=== PATIENT | male | born 1930 | race Caucasian/White ===

== ENCOUNTER 2016-04-20 08:56 | Inpatient (IN) | payer MEDICARE, OTHER ==
[~2016-04-20] VITALS: Ht 185.4 cm; Wt 118.2 kg
[~2016-04-20 08:56] MED LIST: BETAPACE 80 MG80 MG PO; CORDARONE200 MG PO; COUMADIN5 MG PO; FLOMAX0.4 MG PO; FLORINEF 0.1 M0.1 MG PO; K-DUR20 MEQ PO; LASIX40 MG PO; PACERONE200 MG PO; SYNTHROID100 MCG PO; SYNTHROID200 MC1 PO
[2016-04-20 09:23] LABS: BASOPHILS 0.3 % (0.0-2.0); EOSINOPHILS 0.2 % (0-7); HEMATOCRIT 38.8 % (42.0-54.0); HEMOGLOBIN 12.2 g/dL (13.5-17.5); IMMATURE GRANULOCYTES 0.3 % (0-5); LYMPHOCYTES 14.1 % (15-50); MCH 29.5 pg (26.0-34.0); MCHC 31.4 g/dL (31.0-37.0); MCV 93.9 fL (80.0-100.0); MONOCYTES 9.9 % (2-11); NEUTROPHILS 75.2 % (40-80); PLATELET COUNT 150 10x3/uL (130-400); RBC 4.13 10x6/uL (4.20-6.10); WBC 5.8 10x3/uL (4.8-10.8)
[2016-04-20 09:36] LABS: ALBUMIN 3.5 g/dL (3.4-5.0); ALKALINE PHOSPHATASE 103 U/L (46-116); ALT (SGPT) 30 U/L (10-68); BILIRUBIN - TOTAL 0.92 mg/dL (0.2-1.3); CALC OSMOLALITY 286 mosm/kg (275-300); CALCIUM 9.4 mg/dL (8.5-10.1); CARBON DIOXIDE 31.3 mmol/L (21.0-32.0); CHLORIDE - SERUM 103 mmol/L (98-107); CREATININE - SERUM 1.4 mg/dL (0.6-1.3); GLUCOSE 116 mg/dL (74-106); PROTEIN - SERUM 7.3 g/dL (6.4-8.2); SODIUM 141 mmol/L (136-145); UREA NITROGEN 27 mg/dL (7-18); eGFR NON AFRICAN AMERICAN 51 mL/min (90-120)
[2016-04-20 09:44] LABS: AMYLASE - SERUM 54 U/L (25-115); CREATINE KINASE 40 UL (21-232); LIPASE 136 U/L (73-393); PRO BNP 6445 pg/mL (0-450)
[2016-04-20 09:46] LABS: TROPONIN-I < 0.017 ng/mL (0.000-0.060)
[2016-04-20 10:25] LABS: INR 2.23 (0.85-1.17); PROTIME 24.7 SECONDS (11.6-15.0)
--- NOTE | 2016-04-20 11:03 | NUR ---
RECEIVED PT FROM ER VIA WHEELCHAIR. ON 02 AT 2L VIA NC. IV SEEN TO RIGHT AC THAT IS CURRENTLY SALINE LOCKED AND PATENT. PT DENIES ANY PAIN AT CURRENT TIME. DAUGHTERS ARE AT BEDSIDE. WILL CONTINUE TO ADMIT PT AND CONTINUE TO MONITOR.
[2016-04-20] MEDS ORDERED: ZYLOPRIM300 MG PO (11:10)
[2016-04-20 11:11] VITALS: BP 109/79; BMI 35.9
[2016-04-20] MEDS ORDERED: VITAMIN D10000 UNI1 PO (11:11)
[2016-04-20 11:30] VITALS: BP 109/79
--- NOTE | 2016-04-20 12:14 | NUR ---
PT DOES HAVE LEONIDES HOSE ON. PER REPORT FROM PTS DAUGHTERS, PT WEARS THESE TO PREVENT BLOOD CLOTS. PT IS ALSO ON COUMADIN TO PREVENT BLOOD CLOTS.
--- NOTE | 2016-04-20 13:06 | NUR ---
Patient Name: LILIYA TREJO Admission Status: ER Accout number: [id number] Admission Date: 04-20-2016 : 1930 Admission Diagnosis: CHF Attending: JOHN Current LOS: 1 Anticipated DC Date: 04/22/16 Planned Disposition: Return home with . Primary Insurance: MEDICARE A & B Discharge Planning Comments: CM met with patient and daughters to complete initial discharge planning assessment. Consent given to complete assessment. Patient lives in a one story home with his . There are stairs and a ramp to enter into the home. Patient is independent in his care at home. DME at home is walker, scooter, and a cane. He also has a cpap and lifeline. Patient plans to return home at discharge and is unsure of needs at this time. Cm will continue to follow and assist with dc plans/needs. Fleet Manager/Dispatch: Christal Goff RN, [facility] [phone] Is the patient Alert and Oriented? Yes * How many steps to enter\exit or inside your home? 2 * PCP Dr. [place] * Pharmacy [facility] * Preadmission Environment Home with Family * ADLs Independent * Equipment Cane CPAP * Other Equipment Scooter - just got this * List name and contact numbers for known caregivers / representatives who currently or will assist patient after discharge: Karen Hoffmann - daughter - [phone] * Please name any agencies selected above. [facility] * Additional services required to return to the preadmission environment? No * Can the patient safely return to the preadmission environment? Yes * Has this patient been hospitalized within the prior 30 days at any hospital? No
[2016-04-20 13:26] LABS: % SATURATION 16 % (15-55); IRON 69 ug/dl (35-150); TOTAL IRON BIND CAPACITY 412 ug/dl (260-445); UNSAT IRON BIND CAPACITY 343 ug/dl (150-375)
[2016-04-20 14:25] LABS: HEMOGLOBIN A1C 5.8 % (4.8-6.0)
[2016-04-20 14:55] VITALS: BP 109/79
[2016-04-20 16:00] VITALS: BP 96/62
--- NOTE | 2016-04-20 17:18 | NUR ---
1115- ADMITTED PT. QUICKSTART DONE, ADMISSION ASSESSMENT DONE, AND ADMISSION HISTORY DONE. WENT OVER PTS HOME MEDICATION WITH PT AND DAUGHTERS. PT AND DAUGHTERS STATED THE ONES WE WENT OVER WERE THE MAIN ONES. INFORMED THEM TO LET ME KNOW IF THEY CAN THINK OF ANY OTHER MEDICATION THE PT TAKES AT HOME IF NOT STATED WHILE I WAS PUTTING THEM IN. THEY STATED THEY WOULD DO SO. WILL CONTINUE TO MONITOR.
--- NOTE | 2016-04-20 17:23 | NUR ---
PT SITTING UP IN BED WITH EYES OPEN RESTING. IS AT BEDSIDE. DENIES ANY NEED AT CURRENT TIME. WILL CONTINUE TO MONITOR.
[2016-04-20 20:15] VITALS: BP 97/59
--- NOTE | 2016-04-20 22:06 | NUR ---
PT RESTING IN BED. ALERT ORIENTED CONVERSANT. PT STATING THAT HE NEEDS HIS RESTLESS LEG MEDICATION. PT MED REC REVIEWED. DOES NOT CONTAIN TYPICAL RLS MEDICATIONS. MED REC PREVIOUSLY REVIEWED BY DESHAUN ODOM, [facility].
[2016-04-21 04:12] VITALS: BP 122/84
--- NOTE | 2016-04-21 05:00 | NUR ---
PT RESTING WITH EYES CLOSED. NO DISTRESS. CPOC.
[2016-04-21 05:01] LABS: BASOPHILS 0.4 % (0.0-2.0); EOSINOPHILS 2.3 % (0-7); HEMATOCRIT 36.2 % (42.0-54.0); HEMOGLOBIN 11.4 g/dL (13.5-17.5); IMMATURE GRANULOCYTES 0.2 % (0-5); LYMPHOCYTES 25.5 % (15-50); MCH 29.5 pg (26.0-34.0); MCHC 31.5 g/dL (31.0-37.0); MCV 93.8 fL (80.0-100.0); MEAN PLATELET VOLUME 9.8 fL (7.4-10.4); MONOCYTES 12.2 % (2-11); NEUTROPHILS 59.4 % (40-80); PLATELET COUNT 144 10x3/uL (130-400); RBC 3.86 10x6/uL (4.20-6.10); RDW 16.1 % (11.5-14.5); WBC 5.3 10x3/uL (4.8-10.8)
[2016-04-21 05:20] LABS: INR 1.99 (0.85-1.17); PROTIME 22.6 SECONDS (11.6-15.0)
[2016-04-21 05:24] LABS: ANION GAP 13.4 mmol/L (8-16); CALCIUM 8.9 mg/dL (8.5-10.1); CARBON DIOXIDE 29.9 mmol/L (21.0-32.0); CREATININE - SERUM 1.5 mg/dL (0.6-1.3)
[2016-04-21 05:25] LABS: POTASSIUM - SERUM 3.3 mmol/L (3.5-5.1)
--- NOTE | 2016-04-21 07:06 | NUR ---
AM ROUNDING- PT LAYING IN BED ON RIGHT SIDE WITH EYES OPEN RESTING. IS AT BEDSIDE. ON MONITOR SHOWING SR, HR 95. PER REPORT PT HAS PACEMAKER TO LEFT SIDE OF RIGHT SIDE OF CHEST. ON 02 AT 2L VIA NC. IV SEEN TO RIGHT AC THAT IS CURRENTLY SALINE LOCKED AND PATENT. URINAL IS AT BEDSIDE. PT IS ON EP. POTASSIUM WAS 3.3 THIS AM THAT PER REPORT WAS COVERED BY WAREHOUSE DISTRIBUTION MANAGER NURSE DIANA GREY. NO NEED AT CURRENT TIME. WILL CONTINUE TO MONITOR.
[2016-04-21 09:00] VITALS: BP 100/69
[2016-04-21 12:00] VITALS: BP 85/50
--- NOTE | 2016-04-21 12:35 | NUR ---
ILENE BHATTI NP ON UNIT. CAME TO ME AND ASKED WHY PT DIDN'T GET LAXIS THIS AM. I STATED THE ONLY TIME IT WAS SHOWN TO BE GIVEN ON THE MAY WAS 1800. ILENE BHATTI NP STATED TO ME TO GO AHEAD AND HAVE IT RETIMED FOR 0900 AND 2100 AND TO GIVE PT ONE TIME DOSE NOW OF LAXIS 40MG IV. CALLED PHARMACY TO ASK THEM TO RETIME PTS BID LAXIS, THEY AGREED. WILL GIVE ONE TIME DOSE OF LAXIS NOW AND CONTINUE TO MONITOR.
--- NOTE | 2016-04-21 12:56 | NUR ---
INFORMED ILENE BHATTI NP THAT PTS B/P WAS 85/50. ILENE BHATTI NP STATED SHE WAS AWARE AND THAT PT HAD CHRONIC HYPOTENSION.
--- NOTE | 2016-04-21 15:35 | NUR ---
ON MONITOR SHOWING CONTROLLED A-FIB, HR 80. DR. POTTER MADE ROUNDS THIS AM AND IS AWARE OF THIS. WILL CONTINUE TO MONITOR.
[2016-04-21 16:00] VITALS: BP 113/77
--- NOTE | 2016-04-21 18:13 | NUR ---
PT SITTING UP IN BED, IS CURRENTLY GIVING PT A BED BATH. NO NEED AT CURRENT TIME. WILL CONTINUE TO MONITOR.
--- NOTE | 2016-04-21 19:56 | NUR ---
RESUMED CARE OF PT, VISITING WITH FAMILY, SCD ARE ON, 022L, [id number], USES C-PAP AT NIGHT,HAS PACEMAKER TO R. SIDE, DENIES ANY NEEDS, CALL LIGHT IN REACH, BED IS LOW, SRX2, WILL CONTINUE TO MONITOR
[2016-04-21 20:00] VITALS: BP 81/47
[2016-04-22] VITALS: BP 109/76
--- NOTE | 2016-04-22 01:35 | NUR ---
PT RESTING WITH EYES CLOSED ON L SIDE. RESP EVEN AND REGULAR. HOME CPAP MACHINE IN USE. SR UP X2, CALL LIGHT WITHIN REACH.
[2016-04-22 04:00] VITALS: BP 98/57
[2016-04-22 05:31] LABS: BASOPHILS 0.7 % (0.0-2.0); EOSINOPHILS 6.6 % (0-7); HEMATOCRIT 34.9 % (42.0-54.0); HEMOGLOBIN 10.7 g/dL (13.5-17.5); IMMATURE GRANULOCYTES 0.2 % (0-5); LYMPHOCYTES 30.8 % (15-50); MCH 29.1 pg (26.0-34.0); MCHC 30.7 g/dL (31.0-37.0); MCV 94.8 fL (80.0-100.0); MEAN PLATELET VOLUME 10.1 fL (7.4-10.4); MONOCYTES 15.2 % (2-11); NEUTROPHILS 46.5 % (40-80); PLATELET COUNT 135 10x3/uL (130-400); RBC 3.68 10x6/uL (4.20-6.10); RDW 15.8 % (11.5-14.5); WBC 4.4 10x3/uL (4.8-10.8)
[2016-04-22 05:39] LABS: ANION GAP 9.6 mmol/L (8-16); CARBON DIOXIDE 33.2 mmol/L (21.0-32.0); CREATININE - SERUM 1.4 mg/dL (0.6-1.3)
[2016-04-22 05:41] LABS: POTASSIUM - SERUM 3.8 mmol/L (3.5-5.1)
[2016-04-22 05:51] LABS: INR 2.28 (0.85-1.17); PROTIME 25.2 SECONDS (11.6-15.0)
--- NOTE | 2016-04-22 07:39 | NUR ---
RECEIVED PT REPORT. WILL CONTINUE PLAN OF CARE. NO OTHER NEEDS AT THIS TIME. WILL CONTINUE TO [facility].
[2016-04-22 08:16] VITALS: BP 127/85
--- NOTE | 2016-04-22 09:54 | NUR ---
PT IS ALERT. NO CO PAIN AT THIS TIME. ASSESSMENT DONE PER FLOWSHEET. NO OTHER NEEDS.
[2016-04-22 10:37] VITALS: Ht 185.4 cm; Wt 118.2 kg
[2016-04-22 11:37] VITALS: BP 92/57
--- NOTE | 2016-04-22 13:57 | NUR ---
NO SS OF DISTRESS AT THIS TIME. WILL CONTINUE TO MONITOR.
[2016-04-22 15:53] VITALS: BP 109/75
--- NOTE | 2016-04-22 19:30 | NUR ---
PT IS RESTING IN BED VISITING WITH HIS . ALERT AND ORIENTED X 3. DENIES ACUTE DISCOMFORT AT THIS TIME. IV INFUSING TO RIGHT AC WITHOUT DIFFICULTY. NO REDNESS OR EDEMA NOTED AT THE INSERTION SITE. O2 IS ON @ 2LPM PER NC. TELEMETRY UNIT IS INTACT. SCD'S ARE ON. SR'S ARE UP X 2 IN BED. CALL LIGHT AND BEDSIDE TABLE ARE WITHIN EASY REACH.
[2016-04-22 20:00] VITALS: BP 142/79
--- NOTE | 2016-04-22 22:33 | NUR ---
PT IS RESTING IN BED WITH EYES OPEN. VISITING WITH HIS . NO NEEDS VOICED.
--- NOTE | 2016-04-22 23:30 | NUR ---
LYING ON RT SIDE WITH EYES CLOSED, RESP EVEN AND UNLAB. NO S/S OF ACUTE DISTRESS NOTED. FAMILY MEMBER AT BEDSIDE FOR NIGHT. C/L IN REACH.
[2016-04-23] VITALS: BP 108/89
--- NOTE | 2016-04-23 01:48 | NUR ---
RESTING IN BED WITH EYES CLOSED. NO DISTRESS NOTED.
--- NOTE | 2016-04-23 03:36 | NUR ---
PT RESTING IN BED WITH EYES CLOSED.
--- NOTE | 2016-04-23 04:39 | NUR ---
IV NOTED TO BE INFILTRATED TO RIGHT AC, AND LEAKING FLUIDS. IV DC'D WITH CATHETER INTACT. BANDAID APPLIED TO SITE. IV RESITED TO LEFT WRIST WITH 22G CATH USING STERILE TECHNIQUE. SITE SECURED WITH CLEAR TAPE AND OPSITE. IV RESTARTED.
[2016-04-23 06:14] LABS: BASOPHILS 0.6 % (0.0-2.0); HEMATOCRIT 37.1 % (42.0-54.0); HEMOGLOBIN 11.4 g/dL (13.5-17.5); IMMATURE GRANULOCYTES 0.2 % (0-5); LYMPHOCYTES 32.2 % (15-50); MCH 29.2 pg (26.0-34.0); MCHC 30.7 g/dL (31.0-37.0); MCV 94.9 fL (80.0-100.0); PLATELET COUNT 158 10x3/uL (130-400); RBC 3.91 10x6/uL (4.20-6.10); RDW 15.9 % (11.5-14.5); WBC 4.8 10x3/uL (4.8-10.8)
[2016-04-23 06:18] LABS: CARBON DIOXIDE 32.4 mmol/L (21.0-32.0); CREATININE - SERUM 1.5 mg/dL (0.6-1.3); INR 2.08 (0.85-1.17); POTASSIUM - SERUM 3.4 mmol/L (3.5-5.1); PROTIME 23.4 SECONDS (11.6-15.0)
--- NOTE | 2016-04-23 06:40 | NUR ---
PT IS RESTING IN BED WITH EYES OPEN. NO NEEDS VOICED AT THIS TIME.
--- NOTE | 2016-04-23 07:09 | NUR ---
RECEIVED PT REPORT. NO OTHER NEEDS AT THIS TIME. WILL CONTINUE PLAN OF CARE.
[2016-04-23 07:46] VITALS: BP 117/86
[2016-04-23 11:36] VITALS: BP 147/87
[2016-04-23 13:16] LABS: FOLATE (FOLIC ACID) - SERUM 17.2 ng/mL (>3.0)
--- NOTE | 2016-04-23 13:49 | NUR ---
PT IS ALERT. ASSEESSMENT DONE PER FLOWSHEET. NO OTHER NEEDS AT THIS TIME. WILL CONTINUE TO MONTIOR.
[2016-04-23 15:18] VITALS: BP 130/85
--- NOTE | 2016-04-23 15:27 | EC ---
PATIENT:LILIYA TREJO DATE OF SERVICE: 04/20/16 SEX: M MEDICAL RECORD: [id number] DATE OF : 30 LOCATION:D.M2 D.210 AGE OF PATIENT: 85 ADMISSION DATE: 04/20/16 REFERRING PHYSICIAN: INTERPRETING PHYSICIAN: ROXANE MANRIQUEZ M.D. ECHOCARDIOGRAM REPORT ECHO CHARGES 4 ECHO COMPLETE CLINICAL DIAGNOSIS: CHF ECHOCARDIOGRAPHIC MEASUREMENTS (adult normal given) AC root (d.<3.7cm) 4.1 LV Septum d (<1.2 cm> 1.6 Valve Excursion 0.9 LV Septum (systole) 2.3 Left Atria (s.<4.0cm> 5.0 LVPW d(<1.2cm) 1.5 RV (d.<2.3cm) 3.1 LVPW (sytole) 2.1 LV diastole(<5.6CM) 6.2 MV E-F(>70mm/sec) LV systole 3.8 LVOT Diameter 1.8 MV exc.(>10mm) Est.ejection fraction (50-75%) Pericardial Effusion N DOPPLER: LVIT A E 187 LA RVSP 49.1 LVOT 108 AOP1/2T Asc. Ao 515 RVOT 67.0 RA PA 103 AV Gradient Peak 106.1 AV Mean 67.0 AV Area 0.4 MV Gradient Peak 14.2 MV Mean 5.0 MV Area COMMENTS: Zipper Setter Chainstitch: Aminata GILMOREOE Silk Winding Machine Operator:Sarah Manriquez TAPE# PACS DATE OF SERVICE: 04/21/2016 REFERRING PHYSICIAN: Tayla Dorantes MD. INDICATION: Congestive heart failure. DESCRIPTION: Left ventricle is mildly dilated. There is mild LV dysfunction noted. Estimated ejection is in the order of 40%. Mitral valve is structurally normal. There is moderate regurgitation seen. Left atrium is moderately dilated. The aortic valve leaflets are heavily calcified. There is decreased ECHOCARDIOGRAM REPORT [id number] LILIYA TREJO leaflet excursion noted. Peak gradient across the valve is 106 mmHg with a mean of 67 mmHg. There is mild insufficiency noted as well. Right ventricle is moderately dilated. Tricuspid valve is normal. There is mild regurgitation seen. Right ventricular systolic pressure is elevated at 49 mmHg. There is no pericardial effusion noted. IMPRESSION: 1. Mildly dilated left ventricle with mild left ventricular dysfunction with ejection fraction of 40%. 2. Moderate mitral regurgitation. 3. Severe aortic stenosis by gradient. 4. Moderate tricuspid regurgitation with elevated pulmonary pressures. TRANSINT:[id number] Voice Confirmation ID: [id number] DOCUMENT ID: [id number] ROXANE MANRIQUEZ M.D. at 1527 CC: [id number] DICTATION DATE: 04/22/16 0839 VOUCHER CLERK: 04/22/[address] [facility] [address] [id number]
--- NOTE | 2016-04-23 19:30 | NUR ---
ASSESSMENT COMPLETE, A&O. 02 AT 2 LITER VIA NC. IV TO LEFT WRIST WITH DOBUTREX INFUSING AT 10.7 CC/HR. PT DENIES PAIN OR NEEDS, BED LOW, CL IN REACH, FAMILY AT BED SIDE.
[2016-04-23 20:02] VITALS: BP 130/77
--- NOTE | 2016-04-23 20:46 | NUR ---
HS MEDS GIVEN, UPDRAFT IN PROGRESS.
[2016-04-24 01:39] VITALS: BP 135/93
--- NOTE | 2016-04-24 03:25 | NUR ---
RESTING WITH EYES CLOSED, RESPERATIONS EVEN, NO S/S DISTRESS NOTED.
--- NOTE | 2016-04-24 04:11 | NUR ---
PT LAYING IN BED NO DISTRESS WILL MONIOTR
[2016-04-24 04:37] VITALS: BP 95/66
[2016-04-24 06:39] LABS: BASOPHILS 0.6 % (0.0-2.0); EOSINOPHILS 7.5 % (0-7); HEMATOCRIT 35.7 % (42.0-54.0); HEMOGLOBIN 11.1 g/dL (13.5-17.5); IMMATURE GRANULOCYTES 0.4 % (0-5); LYMPHOCYTES 31.7 % (15-50); MCH 29.3 pg (26.0-34.0); MCHC 31.1 g/dL (31.0-37.0); MCV 94.2 fL (80.0-100.0); MEAN PLATELET VOLUME 9.7 fL (7.4-10.4); MONOCYTES 13.4 % (2-11); NEUTROPHILS 46.4 % (40-80); PLATELET COUNT 158 10x3/uL (130-400); RBC 3.79 10x6/uL (4.20-6.10); RDW 16.1 % (11.5-14.5); WBC 4.8 10x3/uL (4.8-10.8)
[2016-04-24 06:56] LABS: CALCIUM 8.8 mg/dL (8.5-10.1); CARBON DIOXIDE 31.6 mmol/L (21.0-32.0); CREATININE - SERUM 1.3 mg/dL (0.6-1.3); POTASSIUM - SERUM 3.6 mmol/L (3.5-5.1)
[2016-04-24 06:59] LABS: INR 2.23 (0.85-1.17); PROTIME 24.7 SECONDS (11.6-15.0)
[2016-04-24 08:00] VITALS: BP 121/80
--- NOTE | 2016-04-24 10:14 | NUR ---
PT IS ALERT. ASSESSMENT DONE PER FLOWSHEET. NO CO PAIN AT THIS TIME. WILL CONTINUE TO MONTIOR.
--- NOTE | 2016-04-24 11:03 | NUR ---
CURRENT DOBUTAMINE INFUSION COMPLETE. NEW BAG HUNG BASED ON WEIGHT OF 118.2 KG. NEW RATE IS 10.6 ML/HR. PT SITTING UP IN BED TALKING WITH FAMILY. DENIES PAIN OR NEEDS.
[2016-04-24 12:09] VITALS: BP 139/82
--- NOTE | 2016-04-24 13:24 | NUR ---
Nutrition follow-up: Diet: low sodium PO intake 75-100% of meals labs reviewed +BM wt: 260# PO intake is good at this time. RDN following.
[2016-04-24 17:46] VITALS: BP 137/93
[2016-04-24 19:56] VITALS: BP 120/75
--- NOTE | 2016-04-24 22:00 | NUR ---
PT SITTING UP IN BED WATCHING TV. DAUGHTER AT BEDSIDE. ASSESSMENT COMPLETE PER FLOWSHEET. OXYGEN SAT GOOD ON ROOM AIR, USES HOME CPAP FOR HS. NO NEEDS AT THIS TIME. WILL CONTINUE TO MONITOR.
[2016-04-25 01:31] VITALS: BP 106/73
[2016-04-25 04:40] VITALS: BP 110/69
[2016-04-25 06:57] LABS: ANION GAP 9.5 mmol/L (8-16); CALCIUM 9.2 mg/dL (8.5-10.1); CARBON DIOXIDE 32.1 mmol/L (21.0-32.0); CREATININE - SERUM 1.5 mg/dL (0.6-1.3); POTASSIUM - SERUM 3.6 mmol/L (3.5-5.1)
[2016-04-25 07:00] LABS: BASOPHILS 0.9 % (0.0-2.0); EOSINOPHILS 7.7 % (0-7); HEMATOCRIT 36.8 % (42.0-54.0); HEMOGLOBIN 11.3 g/dL (13.5-17.5); IMMATURE GRANULOCYTES 0.2 % (0-5); LYMPHOCYTES 28.8 % (15-50); MCH 29.2 pg (26.0-34.0); MCHC 30.7 g/dL (31.0-37.0); MCV 95.1 fL (80.0-100.0); MEAN PLATELET VOLUME 9.9 fL (7.4-10.4); MONOCYTES 11.2 % (2-11); NEUTROPHILS 51.2 % (40-80); PLATELET COUNT 171 10x3/uL (130-400); RBC 3.87 10x6/uL (4.20-6.10); RDW 15.8 % (11.5-14.5); WBC 4.7 10x3/uL (4.8-10.8)
[2016-04-25 07:08] LABS: INR 2.27 (0.85-1.17); PROTIME 25.2 SECONDS (11.6-15.0)
[2016-04-25 08:22] VITALS: BP 108/72
--- NOTE | 2016-04-25 09:39 | NUR ---
PT IS ALERT. ASSESSMENT DONE PER FLOWSHEET. NO OTHER NEEDS AT THIS TIME. WILL CONTINUE TO MONITOR.
[2016-04-25 11:00] VITALS: BP 98/56
--- NOTE | 2016-04-25 12:47 | NUR ---
NO SS OF DISTRESS AT THIS TIME. WILL CONTINUE TO MONITOR.
--- NOTE | 2016-04-25 15:41 | NUR ---
Patient Name: LILIYA TREJO Encounter No: [id number] : 1930 Primary Insurance: MEDICARE A & B Anticipated DC Date: 04-25-2016 Planned Disposition: Home DCP follow-up note: CM MET WITH PT IN ROOM TO DISCUSS DISCHARGE NEEDS AND PLANNING. CM DISCUSSED AVAILABILITY OF HOME HEALTH, REHAB SERVICES AND MEDICAL EQUIPMENT. PT DENIES DISCHARGE NEEDS. DAUGHTER TO TRANSPORT HOME AT DISCHARGE. PT DENIES NEED FOR PHONE CALL FROM HOME HEALTH AFTER DISCHARGE HOME. PT ACCEPTED HOME HEALTH INFORMATION AND WILL CONTACT HIS PRIMARY DOCTOR IF HE FEELS LIKE HE NEEDS ANY CARE AT HOME. IMPORTANT MESSAGE FROM MEDICARE PROVIDED AND EXPLAINED. Remy Bolanos, CASE MANAGEMENT
--- NOTE | 2016-05-30 15:18 | DS ---
PATIENT:LILIYA TREJO :30 MEDICAL RECORD: [id number] DISCHARGE SUMMARY ADMISSION DATE: 04/20/16 DISCHARGE DATE: 04/25/16 This is a discharge dated 04/25/2016 from the inpatient hospital. DISCHARGE DIAGNOSES: 1. Oytdl-ia-psaiael congestive heart failure with elevated BNP. 2. Chronic atrial fibrillation. 3. Severe aortic stenosis. 4. Coronary artery disease. 5. Orthostatic hypotension. 6. Right pleural effusion. 7. Hypothyroidism. 8. History of cerebrovascular accident. 9. Hypokalemia. 10. Anemia. 11. Restless leg syndrome. 12. Positive stool guaiacs. 13. Chronic kidney disease. 14. Obstructive sleep apnea. CONSULTS THIS HOSPITALIZATION: 1. Cardiology with Carlos Manriquez MD 2. Cardiothoracic surgery with Fred Norwood MD HOSPITAL COURSE: Full H&P is located elsewhere on the chart on this 85-year-old male who was admitted with shortness of breath and was found to be in acute congestive heart failure with right pleural effusion. BNP was elevated. Cardiology was consulted. He was seen by Dr. Manriquez. He was started on Lasix. Echocardiogram was done with an EF of 40%, moderate mitral regurgitation, severe aortic stenosis and moderate tricuspid regurgitation with elevated pulmonary artery pressures. Dobutamine with added. Electrolytes were managed by protocol. Dr. Norwood with cardiovascular surgery was consulted for aortic stenosis. It was not felt that he was a good surgical candidate at this point with decompensated failure. He was diuresing better with the addition of dobutamine. Shortness of breath was improving as well as lower extremity edema. He was seen by physical therapy for ambulation. He did not decompensate off of dobutamine and was considered stable for discharge on 04/25/2016. DISCHARGE MEDICATIONS: As per discharge medication reconciliation. DISCHARGE DISPOSITION: The patient is discharged home. He will continue his current diet and level of activity. He will follow up with primary care, Dr. Colorado in 1 week. He did have positive stool guaiacs that he will follow up with Dr. [place]. He will see Dr. Manriquez with cardiology in 3 weeks and will follow up with cardiovascular surgery as directed. At least 30 minutes was spent in this discharge activity. TRANSINT:[id number] Voice Confirmation ID: [id number] DOCUMENT ID: [id number] Dictated By: JATIN ODEN I have interviewed/examined the above patient and agree with these documented DISCHARGE SUMMARY REPORT [id number] LILIYA TREJO findings. MEHNAZ GR MD at 1346 at 1518 CC: [id number] DICTATION DATE: 05/24/16 1656 DEALMAKER: 05/25/16 0554 DIS IN 04/25/16 [id number] [place] [address]
== END 2016-04-25 14:57 | disposition home or self-care (01) | DRG 291 ==
LOC: D.ER 08:56 → D.M2 10:21
PROVIDERS: Family Medicine; ADMIT Emergency Medicine
DX: I13.0 Hypertensive heart and chronic kidney disease with heart failure and stage 1 through stage 4 chronic kidney disease, or unspecified chronic kidney disease (principal); I50.23 Acute on chronic systolic (congestive) heart failure; N17.9 Acute kidney failure, unspecified; N18.9 Chronic kidney disease, unspecified; I48.91 Unspecified atrial fibrillation; G47.33 Obstructive sleep apnea (adult) (pediatric); I25.10 Atherosclerotic heart disease of native coronary artery without angina pectoris; E03.9 Hypothyroidism, unspecified; Z79.01 Long term (current) use of anticoagulants; I95.1 Orthostatic hypotension; Z95.5 Presence of coronary angioplasty implant and graft; Z86.73 Personal history of transient ischemic attack (TIA), and cerebral infarction without residual deficits; Z87.891 Personal history of nicotine dependence; I35.0 Nonrheumatic aortic (valve) stenosis

== ENCOUNTER 2016-05-20 07:20 | Outpatient (CLI) | payer MEDICARE, OTHER ==
[~2016-05-20] VITALS: Ht 185.4 cm; Wt 116.4 kg
--- NOTE | ~2016-05-20 | HEMODYNAMI ---
PATIENT:LILIYA TREJO MEDICAL RECORD: [id number] : 30 LOCATION:[facility] ADMISSION DATE: 05/20/16 Generatedon:05/20/201610:00 Patient name: LILIYA TREJO Patient #: [id number] SSN: : Date of study: 05/20/2016 Page: Of Hemodynamic Procedure Report Patient Data Patient Demographics Procedure consent was obtained First Name: LILIYA Gender: Male Last Name: MAYA : 1930 [facility] Initial: C Age: 85 year(s) Patient #: [id number] Race: Additional ID: [id number] Contact details [address]: [address] [place] [address] RO[address] State: [place] City: [place] Zip code: [address] Past Medical History Allergies Allergen Reaction Date Comments Reported Other allergy 12/15/2015 SULFA Other allergy 05/20/2016 sulfa Admission Admission Data Admission Date: 05/20/2016 Admission Time: 7:20 Insurance Payor: Private health insurance, Medicare Height (in.): 73 BSA: 2.39 (m2) Height (cm.): 185.42 BMI: 33.77 (kg/m2) Weight (lbs.): 256 Weight (kg.): 116.12 Lab Results Lab Result Date: 05/20/2016 Lab Result Time: 8:06 Biochemistry Name Units Result Min Max BUN mg/dl 38 --(----)-* 7 18 Creatinine mg/dl 1.5 --(----)-* 0.6 1.3 CBC Name Units Result Min Max Hematocrit % 38.1 *-(----)-- 42 54 Hemoglobin g/dl 11.9 *-(----)-- 13.5 17.5 Procedure Procedure Types Cath Procedure Diagnostic Procedure Right Heart RHC and LHC w/Coronaries FFR/IVUS Intra-Coronary IVUS Initial PCI Procedure Coronary Stent Initial Miscellaneous Procedures Moderate Sedation up to 45 minutes Procedure Description Procedure Date Procedure Date: 05/20/2016 Procedure Start Time: 9:10 Procedure End Time: 9:56 Procedure Staff Name Function Ruba Pao RT Scrub Mohit Dial RN Nurse Liban Ramirez MD Performing Physician Vicente Mojica RT Monitor Procedure Data Cath Procedure Fluoroscopy Diagnostic fluoroscopy Total fluoroscopy Time: 15 time: 15 min min Diagnostic fluoroscopy Total fluoroscopy dose: dose: 1778 mGy 1778 mGy Contrast Material Contrast Material Type Amount (ml) Isovue 300 222 Entry Location Entry Primary Successful Side Size Upsize 1 Upsize Entry Closure Cruz ccessful Closure Location (Fr) (Fr) 2 (Fr) Remarks Device Remarks Femoral Right 7 Fr vein Short Femoral Right 5 Fr 6 Fr 6 Fr Vascade artery Mid-Length Short Closure System Estimated blood loss: 10 ml Diagnostic catheters Device Type Used For End Catheter Placement Matches Fashion 7Fr Procedure Union Thermodilution kolton Cordis 5Fr Pigtail Procedure Catheter (MP) Cordis 5Fr JL 4.0 Procedure Catheter (MP) Diagnostic Infinity 5Fr Procedure JL 5 catheter Cordis 5Fr 3DRC Catheter Procedure (MP) Diagnostic Infinity 5Fr Procedure AR 2 MOD catheter Procedure Complications No complications Procedure Medications Medication Administration Route Dosage Oxygen NC 2 l/min Heparin Flush Bag added to field 2 bags (1000units/500ml NS) 0.9% NaCl I.V. 100 ml/hr Fentanyl I.V. 50 mcg Versed I.V. 1 mg Fentanyl I.V. 50 mcg Versed I.V. 1 mg Heparin Bolus I.V. 4000 units Integrilin (Bolus I.V. 10.7 ml 2mg/ml) Plavix P.O. 600 mg Hemodynamics Rest HGB: 11.9 (g/dl) O2 Consumption: Estimated: 269.68 (ml/min) O2 Consumption index ed: Estimated:112.84 (ml/min/m) Heart Rate: 68 (bpm) Pressure Samples Time Site Value (mmHg) Purpose Heart Use Rate(bpm) 9:15 PA 40/13(21) Snapshot 91 9:15 RA 17/20(15) Snapshot 89 Snapshots Pre Cath Intra NCS Post Cath Vital Signs Time Heart Resp SPO2 NIBP (mmHg) Rhythm Pain Sedation Rate (ipm) (%) Status Level (bpm) 8:46:41 86 17 94 128/96(112) NSR 0 (11) 10(A) , No pain 8:50:53 87 17 95 126/92(109) NSR 0 (11) 10(A) , No pain 8:55:11 94 16 93 123/81(104) NSR 0 (11) 10(A) , No pain 8:59:26 91 16 94 115/79(93) NSR 0 (11) 10(A) , No pain 9:03:38 88 16 95 112/78(98) NSR 0 (11) 10(A) , No pain 9:07:47 86 16 95 114/80(98) NSR 0 (11) 10(A) , No pain 9:11:59 87 20 95 103/80(92) NSR 0 (11) 10(A) , No pain 9:16:09 81 16 93 91/68(81) NSR 0 (11) 9(A) , No pain 9:20:15 89 18 95 99/70(81) NSR 0 (11) 9(A) , No pain 9:24:23 86 17 95 97/61(83) NSR 0 (11) 9(A) , No pain 9:28:30 83 17 94 98/68(86) NSR 0 (11) 9(A) , No pain 9:32:43 90 16 95 99/62(76) NSR 0 (11) 9(A) , No pain 9:36:50 84 18 94 109/75(92) NSR 0 (11) 9(A) , No pain 9:41:02 84 16 94 108/75(93) NSR 0 (11) 9(A) , No pain 9:45:12 81 17 95 101/75(86) NSR 0 (11) 9(A) , No pain 9:49:12 90 16 95 104/79(90) NSR 0 (11) 9(A) , No pain 9:53:20 88 16 94 110/78(86) NSR 0 (11) 9(A) , No pain Medications Time Medication Route Dose Verified Delivered Reason Notes Effectiveness by by 8:47:06 Oxygen NC 2 Mohit Mohit Per physician l/min Jayro Dial RN RN 8:47:16 Heparin Flush added 2 Mohit Rueda used for Bag to bags Jayro Dial account contact associate (1000units/500ml field RN NS) 8:47:29 0.9% NaCl I.V. 100 Mohit Rueda Per physician ml/hr Jayro Dial RN RN 9:10:13 Fentanyl I.V. 50 Mohit Mohit for sedation mcg Jayro Dial RN RN 9:10:20 Versed I.V. 1 mg Mohit Mohit for sedation Jayro Dial RN RN 9:11:24 Fentanyl I.V. 50 Mohit Mohit for sedation mcg Jayro Dial RN RN 9:11:30 Versed I.V. 1 mg Mohit Mohit for sedation Jayro Dial RN RN 9:42:26 Integrilin I.V. 10.7 Mohit Mohit for wasted (Bolus 2mg/ml) ml Jayro Dial RN antiplatelet 9.3mL of RN therapy integrilin bolus 9:42:26 Heparin Bolus I.V. 4000 Mohit Rueda for units Jayro Dial RN anticoagulation RN 9:47:52 Plavix P.O. 600 Mohit Rueda for mg Jayro Dial RN antiplatelet RN therapy Procedure Log Time Note 8:31:09 Mohit Dial RN sent for patient. Start room use. 8:31:10 Time tracking: Regular hours 8:31:13 Plan of Care:Hemodynamics will remain stable., Cardiac rhythm will remain stable., Comfort level will be maintained., Respiratory function will remain adequate., Patient/ family verbilizes understanding of procedure., Procedure tolerated without complication., Recovers from procedure without complications.. 8:36:07 Patient received from Pre/Post Procedure Room to [facility] 2 Alert and oriented. Tansferred to table in Supine position. 8:36:08 Correct patient and procedure confirmed by team. 8:36:08 Warm blankets applied, and shruthi hugger turned on for patient comfort. 8:36:09 Signed procedure consent form obtained from patient. 8:36:10 ECG and BP/O2 sat monitors applied to patient. 8:36:11 Full Disclosure recording started 8:45:35 Vital chart was started 8:47:06 Oxygen 2 l/min NC was given by Mohit Dial RN; Per physician; 8:47:16 Heparin Flush Bag (1000units/500ml NS) 2 bags added to field was given by Mohit Dial RN; used for procedure; 8:47:29 0.9% NaCl 100 ml/hr I.V. was given by Mohit Dial RN; Per physician; 8:48:17 Baseline sample Acquired. 8:49:09 Rhythm: atrial fibrillation 8:50:01 H&P Date Dictated: 05/13/2016 Within 30 days and on chart., H&P Addendum completed by physician on day of procedure. (MUST COMPLETE FOR ALL OUTPATIENTS). 8:50:02 Pre-op teaching completed and patient verbalized understanding. 8:50:02 Pre-procedure instructions explained to patient. 8:50:04 Family in waiting room. 8:50:05 Patient NPO since Midnight. 8:50:14 Patient allergic to Other allergysulfa 8:50:17 Is the patient allergic to Iodine/contrast media? No. 8:50:24 Is patient on blood thinner?Yes 8:50:27 Patient diabetic? No. 8:50:30 Previous problem with sedation/anesthesia? No ? 8:50:31 Snore? Yes 8:50:32 Sleep apnea? Yes 8:50:33 Opens mouth fully? Yes 8:50:33 Deviated septum? No 8:50:34 Sticks out tongue? Yes 8:50:36 Airway obstruction? No ? 8:50:37 Dentures? No ? 8:50:43 Patient pain scale 0/10 ?. 8:50:54 IV patent on arrival in left forearm with 0.9% NaCl at [facility]. 8:52:31 Lab Result : Hemoglobin 11.9 g/dl 8:52:31 Lab Result : Hematocrit 38.1 % 8:52:31 Lab Result : BUN 38 mg/dl 8:52:31 Lab Result : Creatinine 1.5 mg/dl 8:52:58 Lab results completed and on chart. 8:53:06 Right groin area was prepped with chlora-prep and draped in sterile fashion 8:53:11 Sharps counted by scrub and verified by R.N. 8:53:11 Alarms reviewed by R. N. 8:53:16 Use device set Femoral Dx 8:53:18 Acist Manifold opened to sterile field. 8:53:18 Tegaderm 4 x 4 opened to sterile field. 8:53:19 Acist Hand Control opened to sterile field. 8:53:20 Medline Cath Pack opened to sterile field. 8:53:20 Bag Decanter opened to sterile field. 8:53:20 Acist Syringe opened to sterile field. 8:53:21 St Royal 260cm J .035 wire opened to sterile field. 8:53:21 Terumo 5Fr [place] Sheath opened to sterile field. 8:53:25 Diagnostic Infinity 5Fr Multipack catheter opened to sterile field. 8:55:04 Patient Weight : 116.12 kg 8:55:23 Insurance Payor : Private health insurance, Medicare 8:55:23 Patient Height : 185.42 cm 8:55:35 Zero performed for pressure channel P1 8:55:52 ACC Patient presents with Stable Angina CCS Anginal Class 2--Slight limitation of ordinary activity. 8:57:57 Terumo 7Fr [place] Sheath opened to sterile field. 9:08:19 Physician arrived 9:08:20 Final Timeout: patient, procedure, and site verified with staff and physician. All members of the team are in agreement. 9:08:20 --------ALL STOP TIME OUT------ 9:08:22 Right groin site verified by team. 9:08:24 Physical assessment completed. ASA score P 2 - A patient with mild systemic disease as per Liban Ramirez MD. 9:08:27 Sedation plan: IV Moderate Sedation Versed, Fentanyl 9:10:06 Procedure started. 9:10:09 Local anesthetic to right femoral artery with Lidocaine 2% by Liban Ramirez MD.INITIAL ACCESS ONLY 9:10:13 Fentanyl 50 mcg I.V. was given by Mohit Dial RN; for sedation; 9:10:20 Versed 1 mg I.V. was given by Mohit Dial RN; for sedation; 9:11:24 Fentanyl 50 mcg I.V. was given by Mohit Dial RN; for sedation; 9:11:30 Versed 1 mg I.V. was given by Mohit Dial RN; for sedation; 9:11:58 A 7 Fr Short sheath was inserted into the Right Femoral vein 9:12:03 A Matches Fashion 7Fr Union Thermodilution kolton was advanced over the wire and used for Procedure. 9:13:28 St Royal 150cm J .025 wire opened to sterile field. 9:13:48 .025 J wire advanced 9:16:32 A 5 Fr sheath was inserted into the Right Femoral artery 9:20:33 Catheter removed. 9:20:52 Terumo 6Fr [place] Destination Sheath opened to sterile field. 9:21:04 Sheath upsized to a 6 Fr Mid-Length. 9:22:18 A Cordis 5Fr Pigtail Catheter (MP) was advanced over the wire and used for Procedure. 9:24:38 Catheter removed. 9:25:16 A Cordis 5Fr JL 4.0 Catheter (MP) was advanced over the wire and used for Procedure. 9:25:51 Catheter removed. unable to cannulate vessel. 9:26:04 A Diagnostic Infinity 5Fr JL 5 catheter was advanced over the wire and used for Procedure. 9:28:17 InnomiNetisper J 300cm 0.014 guide wire opened to sterile field. 9:28:17 Optimal Radiology BasixCompak Inflation Kit opened to sterile field. 9:28:18 LCA angiography performed. 9:28:22 Catheter removed. 9:28:26 A Cordis 5Fr 3DRC Catheter (MP) was advanced over the wire and used for Procedure. 9:29:22 Terumo 6Fr [place] Sheath opened to sterile field. 9:29:32 Catheter removed. unable to cannulate vessel. 9:29:41 A Diagnostic Infinity 5Fr AR 2 MOD catheter was advanced over the wire and used for Procedure. 9:31:11 Catheter removed. unable to cannulate vessel. 9:31:20 Medtronic Launcher 6Fr AR 2.0 guide catheter opened to sterile field. 9:31:26 6 Fr ar 2 guide catheter was inserted over the wire 9:33:30 Catheter removed. 9:35:22 Hurlock Sci Runway 6Fr ART 3.0 SH guide catheter opened to sterile field. 9:35:36 6 Fr art 3 guide catheter was inserted over the wire 9:36:03 RCA angiography performed. 9:36:04 Catheter removed. 9:36:25 Hurlock Sci Mach 1 6Fr Q 5.0 guide catheter opened to sterile field. 9:36:37 6 Fr Q5 guide catheter was inserted over the wire 9:36:41 whisper wire advanced. 9:37:00 Wire advanced across lesion. 9:37:10 Gallant [place] Eagleye IVUS Catheter opened to sterile field. 9:37:24 IVUS catheter advanced over wire. 9:38:34 IVUS pass to Circ lesion performed. 9:38:59 IVUS catheter removed over wire. 9:40:52 ACC PCI Site: mCirc has 75% stenosis. 9:40:53 ACC Pre-intervention OLENA Flow is 3. 9:42:26 Integrilin (Bolus 2mg/ml) 10.7 ml I.V. was given by Mohit Dial RN; for antiplatelet therapy; wasted 9.3mL of integrilin bolus 9:42:26 Heparin Bolus 4000 units I.V. was given by Mohit Dial RN; for anticoagulation; 9:44:18 Inflation Number: 1 A Lopez Ultra Rx 5.0 x 13 Stent was prepped and advanced across the Mid CX. The stent was deployed at 11 NEREIDA for 0:10 (min:sec). 9:44:36 ACC Post-intervention OLENA Flow is 3. 9:44:37 Stent catheter was removed intact over wire. 9:45:19 Wire removed. 9:45:20 Guide catheter removed. 9:45:28 Vascade 6/7 Fr Closure Device opened to sterile field. 9:45:56 Sheath upsized to a 6 Fr Short. 9:46:04 Sheath removed intact; hemostasis achieved with Vascade Closure System to the Right Femoral artery. 9:46:07 Procedure ended.(Physican Out) 9:47:52 Plavix 600 mg P.O. was given by Mohit Dial RN; for antiplatelet therapy; 9:52:10 Fluoroscopy time 15.00 minutes. 9:52:14 Fluoroscopy dose: 1778 mGy 9:52:14 Flurop Dose total: 1778 9:52:18 Contrast amount:Isovue 300 222ml. 9:52:19 Sharps counted by scrub and verified by R.N. 9:52:21 Insertion/operative site no bleeding no hematoma. 9:52:24 Post-op/insertion site Right Femoral artery dressed using a 4 x 4 and Tegaderm. 9:52:27 Post right femoral artery:stable, soft, clean and dry 9:52:28 Post Procedure Pulses reassessed and unchanged 9:52:30 Post-procedure physical assessment completed. ASA score P 2 - A patient with mild systemic disease as per Liban Ramirez MD. 9:52:33 Post procedure rhythm: unchanged. 9:52:35 Estimated blood loss: 10 ml 9:52:36 Post procedure instruction explained to patient.Patient verbalizes understanding. 9:52:37 Patient needs reinforcement of post procedure teaching. 9:52:47 Procedure type changed to Cath procedure, Diagnostic procedure, Right Heart, RHC and LHC w/Coronaries, FFR/IVUS, Intra-Coronary IVUS Initial, PCI procedure, Coronary Stent Initial, Miscellaneous Procedures, Moderate Sedation up to 45 minutes 9:56:20 Procedure Complication : No complications 9:56:21 Vital chart was stopped 9:56:22 See physician's report for complete and final results. 9:56:23 Report given to Pre/Post Procedure Room. 9:56:26 Patient transfered to Pre/Post Procedure Room with Stretcher. 9:56:28 Full Disclosure recording stopped 9:56:28 Procedure ended. 9:56:36 ACC-PCI Only Patient was given prescriptions, or instructed by Liban Ramirez MD to start/continue the following medications upon discharge: Plavix 9:56:39 End room use (Document Last) Intervention Summary Intervention Notes Time ActionType Lesion and Equipment Action# Pressure Duration Attributes Used 9:44:18 Place stent Mid CX Lopez 1 11 00:10 Ultra Rx 5.0 x 13 Stent Device Usage Item Name Manufacture Quantity Catalog Number [facility] Lot# / Charge Number Stock Stock Serial# Code Tegaderm 4 x 4 3M 1 [id number] [id number] 253816 968773 5 Acist Manifold Acist 1 79364 909583 417325 323671 5 Medical Systems Inc Acist Hand Acist 1 27485 650904 994747 536268 5 Control Medical Systems Inc Acist Syringe Acist 1 29727 277174 343185 713910 20 Medical Systems Inc Bag Decanter Microtek 1 2002S 691609 85175 353202 5 Medical Inc. Medline Cath Cardinal 1 [id number] 681991 71672 899334 5 Pack Health Terumo 5Fr Terumo 1 [id number] 301142 926915 672466 [address] [place] [address] Royal [address] St Royal 1 422212 721864 395353 757540 30 J .035 wire Diagnostic Cardinal 1 [id number] 970544 82637 378472 30 Infinity 5Fr Health Multipack catheter Terumo 7Fr Terumo 1 [id number] 407939 451235 742312 5 [place] Sheath Griffin Griffin 1 [id number] 158270 90000 524775 3 Lifesciences Lifesciences 7Fr Union Thermodilution kolton St Royal 150cm St Royal 1 977224 435473 280300 466439 2 J .025 wire Terumo 6Fr Terumo 1 RSR01 804135 05142 927829 5 [place] Destination Sheath Cordis 5Fr Cardinal 1 537886 5 Pigtail Health Catheter (MP) Cordis 5Fr JL Cardinal 1 266124 5 4.0 Catheter Health (MP) Diagnostic Cardinal 1 [id number] 640084 939478 092660 5 Infinity 5Fr Health JL 5 catheter [facility] Merit 1 [id number] 634480 579417 431396 15 QuadWrangle Medical Inflation Kit Lopez Whisper Lopez 1 [id number] 546251 262651 960923 5 J 300cm 0.014 Vascular guide wire Cordis 5Fr Cardinal 1 635260 5 3DRC Catheter Health (MP) Terumo 6Fr Terumo 1 KBK246 297261 404395 003421 40 [place] Sheath Diagnostic Cardinal 1 [id number] 589167 616192 219765 20 Infinity 5Fr Health AR 2 MOD catheter Medtronic Medtronic 1 [id number] 383166 99661 038892 1 Launcher 6Fr AR 2.0 guide catheter Hurlock Sci Hurlock 1 [id number] 716799 230386 9892786 [address] 6Fr ART Scientific 3.0 SH guide catheter Hurlock Sci Hurlock 1 [id number] 418739 438200 277976 0 Mach 1 6Fr Q Scientific 5.0 guide catheter Gallant Gallant 1 [id number] 461070 535370 395447 8 [place] Eagleye IVUS Catheter Lopez Ultra Lopez 1 [id number] 649166 040925 940591 5 [id number] Rx 5.0 x 13 Vascular Stent Vascade 6/7 Fr Cardiva 1 [id number] 571793 741146 173775 5 Closure Device Taking Point[employer] Signature Audit Ola Stage Time Signature Unsigned Intra-Procedure 05/20/2016 Vicente Mojica 9:56:56 AM RT(R) Signatures Monitor : Vicente Mojica RT Signature : Date : Time : [place] [id number] [place] [address]
[~2016-05-20 07:20] MED LIST changes: +VITAMIN D10000 UNI1 PO; +ZYLOPRIM300 MG PO
[2016-05-20 07:49] VITALS: BP 126/79; Ht 185.4 cm; Wt 116.4 kg
[2016-05-20 08:07] LABS: BASOPHILS 0.2 % (0.0-2.0); EOSINOPHILS 7.7 % (0-7); HEMATOCRIT 38.1 % (42.0-54.0); HEMOGLOBIN 11.9 g/dL (13.5-17.5); LYMPHOCYTES 27.6 % (15-50); MCH 29.8 pg (26.0-34.0); MCHC 31.2 g/dL (31.0-37.0); MCV 95.5 fL (80.0-100.0); MEAN PLATELET VOLUME 10.3 fL (7.4-10.4); MONOCYTES 11.2 % (2-11); NEUTROPHILS 53.3 % (40-80); PLATELET COUNT 153 10x3/uL (130-400); RBC 3.99 10x6/uL (4.20-6.10); RDW 16.3 % (11.5-14.5); WBC 5.2 10x3/uL (4.8-10.8)
[2016-05-20] MEDS ORDERED: ASCORBIC ACID500 MG PO (08:08)
[2016-05-20 08:22] LABS: INR 1.29 (0.85-1.17)
[2016-05-20 08:37] LABS: ANION GAP 11.6 mmol/L (8-16); CALCIUM 9.1 mg/dL (8.5-10.1); CARBON DIOXIDE 30.4 mmol/L (21.0-32.0); CREATININE - SERUM 1.5 mg/dL (0.6-1.3)
[2016-05-20] MEDS ORDERED: PLAVIX75 MG PO (10:00)
[2016-05-20] MEDS ORDERED: BAYER CHEWABLE81 MG PO (10:00)
--- NOTE | 2016-05-20 10:39 | NUR ---
1020 LYING FLAT, AWAKE AND TALKING WITH FAMILY. NC 2L. NSR RATE 86 WNO C/O CHEST PAIN. PULSES PALP X 4. R GROIN 6F VASCADE C/D/I WITH NO HEMATOMA OR BLEEDING. SIPPING SODA WITH NO NAUSEA.
--- NOTE | 2016-05-20 11:02 | NUR ---
1050 LYING FLAT, VITALS ALL WNL. R GROIN 6F VASCADE C/D/I WITH NO HEMATOMA OR BLEEDING. VOIDED VIA URINAL. FAMILY AT BEDSIDE. NO C/O CEHST PAIN.
--- NOTE | 2016-05-20 11:20 | NUR ---
RESTING QUIETLY WITH EYES CLOSED. VSS 6 FR VASCADE R/GROIN CDI NO BLEEDING NO HEMATOMA NOTED. FAMILY AT SIDE
--- NOTE | 2016-05-20 11:49 | NUR ---
SMALL AMOUNT OF BLOOD NOTED TO DRESSING NO HEMATOMA NOTED PRESSURE HELD FOR 10 MINUTES WITH BLEEDING STOPPED PRESSURE DRESSING APPLIED. WILL MONITOR CLOSELY.
--- NOTE | 2016-05-20 13:39 | NUR ---
1230 R GROIN REMAINS C/D/I WITH NO HEMATOMA OR BLEEDING. 1330 ELEVATED HOB, WILL MONTIOR R GROIN. DRESSING CHANGED TO R GROIN. TEGADERM AND 2X2 APPLIED. 1340 PIV REMOVED FROM LEFT ARM WITH BANDAID APPLIED.
--- NOTE | 2016-05-20 14:01 | NUR ---
UP TO BEDSIDE TO DRESS WITH ASSIST FROM . R GROIN REMAINS C/D/I WITH NO BLEEDING OR HEMATOMA. D/C INSTRUCTIONS DISCUSSED WITH PATIENT AND AT BEDSIDE. WHEELED OUT VIA WHEELCHAIR BY CATH TEAM.
--- NOTE | 2016-06-04 14:37 | OP ---
PATIENT NAME: LILIYA TREJO MEDICAL RECORD: [id number] :30 LOCATION:D.CAT ADMISSION DATE: SURGEON: ARDEN MEJIA MD DATE OF OPERATION: 05/20/2016 PROCEDURES: 1. PTCA stent left circumflex. 2. Intravascular ultrasound of left circumflex. 3. Left heart catheterization. 4. Selective coronary angiography. 5. Right heart catheterization. INDICATION: Angina, coronary artery disease, shortness of breath, and pulmonary hypertension. PROCEDURE IN DETAIL: After informed consent was obtained and after a detailed explanation of the risks, benefits as well as alternative therapies, the patient elected to proceed with angiogram and angioplasty. The right femoral area was prepped and draped in normal sterile fashion. The right femoral artery was cannulated via modified Seldinger technique with placement of 6-Barbadian sheath. Right femoral vein cannulated via modified Seldinger technique with placement of a 7-Barbadian sheath. FINDINGS: Left ventriculogram was not performed secondary to inability to cross the valve. SELECTIVE CORONARY ANGIOGRAPHY: 1. Left main showed no significant angiographic disease. 2. Left anterior descending has a previously placed stent proximally. This is widely patent with no significant restenosis. No disease elsewise throughout the LAD or its branches. 3. The left circumflex has hazy questionable stenosis in the mid vessel. Intravascular ultrasound confirmed that this was 76%. 4. The right coronary is small, nondominant with no significant disease. PTCA STENT OF THE LEFT CIRCUMFLEX: The stent used was a 5.0 x 13 mm Ultra. Result was 0% residual stenosis. HEMODYNAMICS: The pulmonary artery pressure is normal at 21/16, right ventricular pressure normal at 21/6, right atrial mean pressure of 10. OVERALL IMPRESSION: Successful percutaneous transluminal coronary angioplasty stent of the left circumflex going from 76% initial stenosis to 0% residual. TRANSINT:[id number] Voice Confirmation ID: [id number] DOCUMENT ID: [id number] ARDEN MEJIA MD at 1437 CC: [id number] DICTATION DATE: 05/20/16 0955 BIOCHEMIST: 05/20/16 1249 DEP CLI 05/20/16 [place] [address]
== END 2016-05-20 14:02 | disposition home or self-care (01) ==
LOC: D.CATH 07:20
PROVIDERS: Internal Medicine Interventional Cardiology
DX: I25.119 Atherosclerotic heart disease of native coronary artery with unspecified angina pectoris (principal); I27.2 Other secondary pulmonary hypertension

== ENCOUNTER 2016-09-25 05:53 | Day surgery (SDC) | payer MEDICARE, OTHER ==
[~2016-09-25] VITALS: Ht 185.4 cm; Wt 112.5 kg
[~2016-09-25 05:53] MED LIST changes: +ASCORBIC ACID500 MG PO; +BAYER CHEWABLE81 MG PO; +PLAVIX75 MG PO
[2016-09-25 07:54] LABS: HEMATOCRIT 38.2 % (42.0-54.0); HEMOGLOBIN 11.8 g/dL (13.5-17.5); MCH 27.1 pg (26.0-34.0); MCHC 30.9 g/dL (31.0-37.0); MCV 87.6 fL (80.0-100.0); MEAN PLATELET VOLUME 9.6 fL (7.4-10.4); RBC 4.36 10x6/uL (4.20-6.10); RDW 15.6 % (11.5-14.5); WBC 4.1 10x3/uL (4.8-10.8)
[2016-09-25 08:05] LABS: APTT 23.4 SECONDS (22.8-39.4)
[2016-09-25 08:08] LABS: ANION GAP 13.6 mmol/L (8-16); CALCIUM 8.9 mg/dL (8.5-10.1); CARBON DIOXIDE 28.4 mmol/L (21.0-32.0); CREATININE - SERUM 1.4 mg/dL (0.6-1.3); INR 1.28 (0.85-1.17); PROTIME 15.9 SECONDS (11.6-15.0)
[2016-09-25] MEDS ORDERED: REQUIP0.5 MG PO (09:18)
[2016-09-25] MEDS ORDERED: PROBIOTIC1 EAC1 PO (09:21)
[2016-09-25 09:28] VITALS: BP 129/72; Ht 185.4 cm; Wt 112.5 kg
--- NOTE | 2016-09-25 15:34 | NUR ---
1345--IV DC'D, PT UP TO DRESS AT THIS TIME. CODIE SOARES 1355--DISCHARGE INSTRUCTIONS GIVEN, PT VERBALIZES UNDERSTANDING. PT OFF UNIT VIA WC. CODIE SOARES
--- NOTE | 2016-09-28 13:04 | OP ---
PATIENT NAME: LILIYA TREJO MEDICAL RECORD: [id number] :30 LOCATION:D.[facility] ADMISSION DATE: SURGEON: FRANCE NORWOOD MD OPERATION DATE: 09/25/16 SURGEON: France Norwood M.D. ANESTHESIA: General endotracheal by Dr. Bruce. PROCEDURE: Pulse generator exchange. PREOPERATIVE DIAGNOSIS: Sick sinus syndrome, atrial fibrillation, bradycardia. POSTOPERATIVE DIAGNOSIS: Sick sinus syndrome, atrial fibrillation, bradycardia. INDICATION FOR OPERATION: Pulse generator end of life. FINDINGS OF OPERATION: The pulse generator [employer] Adaptor ADDR 01, serial #[id number]. Device removed model #[id number]. Serial #[id number]. Good chronic thresholds. ESTIMATED BLOOD LOSS: Less than 5 mL. PROCEDURE IN DETAIL: After informed consent, adequate preoperative medication, and evaluation, the patient was brought to the operating room and placed stable in the supine position. After induction of general endotracheal anesthesia and application of appropriate monitoring devices, the right chest was prepped and draped in sterile field utilizing Betadine scrub, alcohol, and Betadine solution. Betadine impregnated drape was also used. 1% Lidocaine was infiltrated in the previous incision as well as in the pulse generator pocket. Incision made. Carried down to the pocket. Pocket was opened. Revised inferiorly and medially. Hemostasis assured. The pulse generator was changed. The leads were analyzed. They were felt to be good chronic leads. The pulse generator placed in the pocket. The pacemaker fired. Captured and sensed appropriately. The pocket was irrigated. Instrument count, sponge count were correct times two. The pocket was closed in layers utilizing 3-0 Vicryl on deep subcutaneous tissue and the pocket, 5-0 subcuticular Monocryl on the skin. Sterile dressing was applied. The patient tolerated the procedure well and was transferred to Post Anesthesia Recovery in satisfactory condition. FRANCE NORWOOD MD at 1304 CC: [id number] DICTATION DATE: 09/25/16 1500 CONTINUING EDUCATION DIRECTOR: RANJANA 09/26/16 1231 [facility] 09/25/16 [place] [id number]
--- NOTE | 2016-09-28 13:04 | HP ---
PATIENT: LILIYA TREJO MEDICAL RECORD: [id number] ACCOUNT: [id number] LOCATION:D.OPS : 30 ADMISSION DATE: 09/25/16 HISTORY AND PHYSICAL EXAMINATION LILIYA Devine (85yo, M) ID# [id number]. Date/Time09/18/2016 01:03PRGAN60/17/1931Service Dept.N[facility] ClinicProviderEDDORCAS KRISHNAN MDInsuranceMed Primary: [place] Insurance # : [id number] Referring Provider Name : RIC FRAUSTO Employer Name : RETIRED Med Secondary: [employer] (MEDICARE SUPPLEMENT) Insurance # : [id number] Policy/Group # : [id number] Referring Provider Name : RIC FRAUSTO Employer Name : RETIRED Prescription: CMX - Member is eligible. Chief Complaint pulse generator end-of-life FIVE MONTH F/U, EVAL FOR PULSE GENERATOR EXCHANGE Patient's Care Team Referring Provider (): RIC FRAUSTO: [facility], [address] [place] [phone], , Patient's Pharmacies [facility]): [address] [place] [address] [place] [address], , Vitals BP:10 2/60 sitting R arm 09/18/2016 01:28 pmBP Cuff Size:adult 09/18/2016 01:28 pmHR:88,IRREG 09/18/2016 01:29 pmHt:6 ft 1 in 09/18/2016 01:24 pmWt:248.1 lbs 09/18/2016 01:29 pmNotes:HAD PPM CHECKED AT DR MEJIA'S OFFICE FRIDAY. NEEDS NEW PULSE GENERATOR.09/18/2016 01:29 pmBMI:32.7 09/18/2016 01:29 pmAllergies Reviewed Allergies SULFA (SULFONAMIDE ANTIBIOTICS)Medications Reviewed Medications Sherly Allergy 180 mg tablet Take 1 tablet(s) every day by oral route.08/02/14 prescribedMushtaq Mandy Chanllopurinol 300 mg eeswol79/19/17 filledCaremarkamiodarone 200 mg csyiyj17/19/17 filledCaremarkamlodipine 2.5 mg-benazepril 10 mg bufvkbu10/17/17 filledCaremarkamlodipine 5 mg-benazepril 20 mg /24/15 filledCaremarkazithromycin 250 mg vtlveq89/23/17 filledCaremarkBystolic 5 mg wexbnm41/06/16 filledCaremarkcephALEXin 500 mg fajqlij08/07/16 filledCaremarkclopidogrel 75 mg ecziiz89/13/17 filledCaremarkfludrocortisone 0.1 mg idfpbp15/19/17 filledCaremarkfluticasone 50 mcg/actuation nasal spray,suspension Take 2 spray(s) twice a day by nasal route.08/02/14 filledCaremarkfurosemide 40 mg tablet as ijskhu48/19/17 filledCaremarkKenalog 10 mg/mL suspension for injection Take 1 mL by injection route as directed.07/13/15 administeredCody PappasFLOXacin 750 mg tablet Take 1 tablet(s) every day by oral route for 10 days.12/07/15 filledCaremarklevothyroxine 100 mcg uwapqv22/19/17 filledCaremarklidocaine-prilocai ne 2.5 %-2.5 % topical cream10/26/15 filledCaremarkmethylPREDNISolone 4 mg tablets in a dose pack03/19/16 filledCaremarkmontelukast 10 mg tablet Take 1 tablet(s) every day by oral route.12/06/14 filledCaremarkMyrbetriq 25 mg tablet,extended znshifp77/13/15 filledCaremarkpotassium chloride ER 20 mEq HISTORY AND PHYSICAL [id number] LILIYA TREJO tablet,extended release(part/cryst)08/26/16 filledCaremarkpredniSONE 10 mg sxgbig79/28/16 filledCaremarkrOPINIRole 0.5 mg gpaqkw09/19/17 filledCaremarksotalol 80 mg uodjok77/07/16 filledCaremarktamsulosin 0.4 mg xxujfaa30/19/17 filledCaremarkVentolin HFA 90 mcg/actuation aerosol ybqkvws58/27/15 filledCaremarkVesicare 5 mg msoqti19/16/16 filledCaremarkVitamin C 500 mg chewable tablet Take by oral route.08/02/14 enteredCharity McAllisterwarfarin 4 mg lqxewz58/25/17 filledCaremarkwarfarin 5 mg qsdaui05/29/16 filledCaremarkVaccines Reviewed Vaccines Vaccine TypeDateAmt.RouteSiteLot #Mfr.Exp. DateDate on VISVIS GivenVaccinatorInfluenzainfluenza, high dose [id number] Reviewed Problems History of aortic valve replacement - Onset: 09/18/2016 Maintenance procedure for cardiac pacemaker system - Onset: 09/18/2016 Aortic valve stenosis - Onset: 06/06/2016 Neoplasm of respiratory tract Tracheobronchitis Plantar fasciitis Osteoarthritis of knee Osteoarthritis of foot joint Enthesopathy of hip region Thromboembolic disorder Hypertensive disorder Spider bite wound Asthmatic bronchitis Hypothyroidism Cellulitis of lower limb Cough Wheezing Allergic rhinitis Chronic cough Abdominal aortic aneurysm without rupture Obstructive sleep apnea syndrome Maxillary sinusitis Family History Discussed Family History Father- Myocardial infarction ( age: 64) - previously recorded as Heart Attack ([place])Brother- Malignant neoplastic disease ( age: 79) - previously recorded as Cancer, otherSister- Malignant neoplastic disease ( age: 60) - previously recorded as Cancer, otherMother- Malignant neoplastic disease ( age: 59) - previously recorded as Cancer, otherSocial History Discussed Social History Cardiology and General Family history of heart disease?: Y Smoking Status: Never smoker Non-smoker High blood pressure: Y HISTORY AND PHYSICAL [id number] LILIYA TREJO Alcohol intake: None Occupation: retired Marital status: Is blood transfusion acceptable in an emergency?: Y Caffeine intake: Occasional Tobacco-years of use: 0 Surgical History Reviewed Surgical History Insrt heart pm atrial & vent - 06/27/2010 Anesth knee joint procedure - 02/2008 - right total knee AAA Repair - 07/15/2002 - EVS Endovas aaa repr w/sm tube - 07/2002 Past Medical History Reviewed Past Medical History Blood Clots: Y Chest Pain: Y Heart Disease: Y - blood clots Heart Rhythm Disorder: Y - AFIB High Blood Pressure: Y Kidney Disease: Y Phlebitis: Y Prostate Problems: Y Stroke: Y Documents for Discussion N/A Screening None recorded. HPI Atrial Fibrillation Reported by patient. Quality: irregular; erratic Associated Symptoms: no chest discomfort; no decline in exercise capacity; no fatigue; no associated dizziness; no awareness of palpitation; exertional dyspnea; HAD A DIZZY SPELL GETTING OFF GOLF CART pulse generator end-of-life ROS Patient reports exercise intolerance but reports no fever, no night sweats, no significant weight gain, and no significant weight loss. He reports shortness of breath when walking, shortness of breath when lying down, and palpitations but reports no chest pain, no arm pain on exertion, and no known heart murmur. He reports wheezing, shortness of breath, and sleep apnea but reports no cough and no coughing up blood. He reports muscle aches, muscle weakness, arthralgias/joint pain, and swelling in the extremities but reports no back pain. He reports no dry eyes, no irritation, and no vision change. He rep orts no difficulty hearing and no ear pain. He reports no frequent nosebleeds and no nose/sinus problems. He reports no sore throat, no bleeding gums, no snoring, no dry mouth, no mouth ulcers, no oral abnormalities, and no teeth problems. He reports no a b dominal pain, no vomiting, normal appetite, no diarrhea, not vomiting blood, no nausea, and no constipation. He reports no incontinence, no difficulty urinating, no hematuria, and no increased frequency. He reports no abnormal mole, no jaundice, and no ra s hes. He reports no loss of consciousness, no weakness, no numbness, no seizures, no dizziness, and no headaches. He reports no depression, no sleep disturbances, feeling safe in relationship, and no alcohol abuse. He reports no fatigue. He reports no swol alean glands and no bruising. He reports no runny nose, no sinus pressure, no itching, no HISTORY AND PHYSICAL [id number] MAYA,LILIYA C hives, and no frequent sneezing. ROS as noted in the HPI Physical Exam Patient is an 85-year-old male. Constitutional: General Appearance well nourished and developed and healthy-appearing. Level of Distress NAD. Ambulation ambulating normally. Cardiovascular: Apical Impulse not displaced or no thrill. Heart Auscultation normal s1 and s2, no rubs or gallops, and RRR and murmur (good prosthetic heart sounds). Arterial Pulses no abdominal aorta bruits, femoral bruits, or popliteal bruits and 2+ bilateral, carotid 2+ bilateral, femoral 2+ bilateral, popliteal 2+ bilateral, and dorsalis pedis 2+ bilateral. Edema no edema or varicosities. Lungs: Repiratory Effo rt no dyspnea. Percussion no hyperresonance or dullness or flatness. Auscultation no wheezing, rhonchi, or rales / crackles and breathing sounds normal, good air movement, and CTA except as noted. Abdomen: Bowl Sounds normal. Inspection and Palpation no t enderness, guarding, masses, or rebound tenderness and soft and non-distended. Liver non-tender and no hepatomegaly. Spleen non-tender and no splenomegaly. Hernia none palpable. Musculoskeletal System: Gait And Stance normal gait and stance. Digits and Nails normal nails and no cyanosis. Neurologic: Cranial Nerves grossly intact. Reflexes DTRs 2+ bilaterally throughout. Sensation grossly intact. Lymph Nodes: Lymph Nodes no cervical LAD, supraclavicular LAD, axillary LAD, or inguinal LAD. Eyes: Lids and Conjunctivae no discharge or pallor and non-injected. Pupils PERRLA. Cornea grossly intact. EOM EOMI. Lens clear. Sclerae non-icteric. Neck: Neck no masses, enlarged lymph nodes, or carotid bruits and supple and trachea midline. Thyroid no enlargement or nodules and non-tender. Skin: Inspection and Palpation no rash, lesions, ulcers, jaundice, or abnormal nevi. Assessment / Plan abdominal aortic aneurysm endovascular stent repair TAVR Pulse generator end-of-life 1. Maintenance procedure for cardiac pacemaker system Z45.010: Encounter for checking and testing of cardiac pacemaker pulse generator [battery] 2. History of aortic valve replacement Z95.4: Presence of other heart-valve replacement Discussion Notes pulse generator end-of-life Recent TAVR Abdominal aortic aneurysm repair endovascular stent I have discussed his disease process with him in detail as well as the alternative HISTORY AND PHYSICAL [id number] LILIYA TREJO methods of treatment we discussed permanent pulse generator exchange including expect ed benefits and risks which include bleeding infection and understands all of the above and wishes to proceed with planned procedure. FRANCE KRISHNAN MD at 1304 CC: [id number] DICTATION DATE: 09/18/16 1300 INFORMATION SYSTEMS PROFESSOR: DM 09/25/16 0831 [facility] 09/25/16 [place] [id number] [place] [address]
== END 2016-09-25 13:55 | disposition home or self-care (01) ==
LOC: D.OPS 05:53
PROVIDERS: Internal Medicine Cardiovascular Disease
DX: Z45.010 Encounter for checking and testing of cardiac pacemaker pulse generator [battery] (principal); I49.5 Sick sinus syndrome; E03.9 Hypothyroidism, unspecified; I71.4 Abdominal aortic aneurysm, without rupture; G47.33 Obstructive sleep apnea (adult) (pediatric); I35.0 Nonrheumatic aortic (valve) stenosis; M17.10 Unilateral primary osteoarthritis, unspecified knee; M19.079 Primary osteoarthritis, unspecified ankle and foot; I10 Essential (primary) hypertension; J45.909 Unspecified asthma, uncomplicated

== ENCOUNTER → 2016-10-28 12:53 | Outpatient (CLI) | payer MEDICARE, OTHER ==
[2016-09-25 09:28] VITALS: BMI 32.7
[~2016-10-28 12:53] MED LIST changes: +PROBIOTIC1 EAC1 PO; +REQUIP0.5 MG PO
== END | disposition home or self-care (01) ==
LOC: D.CT 12:53
DX: I71.4 Abdominal aortic aneurysm, without rupture (principal)

== ENCOUNTER 2016-11-26 11:25 | Inpatient (IN) | payer MEDICARE, OTHER ==
[~2016-11-26] VITALS: Ht 185.4 cm; Wt 109.7 kg
--- NOTE | ~2016-11-26 | HEMODYNAMI ---
PATIENT:LILIYA TREJO MEDICAL RECORD: [id number] : 30 [id number] ADMISSION DATE: 11/27/16 Generatedon:11/29/201615:04 Patient name: LILIYA TREJO Patient #: [id number] SSN: : Date of study: 11/29/2016 Page: Of Hemodynamic Procedure Report Patient Data Patient Demographics Procedure consent was obtained First Name: LILIYA Gender: Male Last Name: MAYA : 1930 [facility] Initial: C Age: 86 year(s) Patient #: [id number] Race: Additional ID: [id number] Contact details Address: [address] [place] [address] ROAD State: [place] City: [place] Zip code: [address] Past Medical History Allergies Allergen Reaction Date Comments Reported Other allergy 12/15/2015 SULFA Other allergy 05/20/2016 sulfa Other allergy 11/29/2016 sulfa Admission Admission Data Admission Date: 11/27/2016 Admission Time: 13:47 Room #: D.2126 Lab Results Lab Result Date: 11/29/2016 Lab Result Time: 0:00 Biochemistry Name Units Result Min Max BUN mg/dl 26 --(----)-* 7 18 Creatinine mg/dl 1.5 --(----)-* 0.6 1.3 CBC Name Units Result Min Max Hemoglobin g/dl 10.7 *-(----)-- 13.5 17.5 Procedure Procedure Types Cath Procedure Diagnostic Procedure LHC LHC w/Coronaries Miscellaneous Procedures Moderate Sedation up to 30 minutes Procedure Description Procedure Date Procedure Date: 11/29/2016 Procedure Start Time: 14:46 Procedure End Time: 15:01 Procedure Staff Name Function Liban Ramirez MD Performing Physician Vicente Mojica RT Scrub Raquel Armando RN Nurse Tayla Monroe RT Monitor Indication Angina Procedure Data Cath Procedure Fluoroscopy Diagnostic fluoroscopy Total fluoroscopy Time: 4.2 time: 4.2 min min Diagnostic fluoroscopy Total fluoroscopy dose: 443 dose: 443 mGy mGy Contrast Material Contrast Material Type Amount (ml) Isovue 300 83 Entry Location Entry Primary Successful Side Size Upsize Upsize Entry Closure Succes sful Closure Location (Fr) 1 (Fr) 2 (Fr) Remarks Device Remarks Femoral Right 5 Fr Exoseal artery Estimated blood loss: 5 ml Diagnostic catheters Device Type Used For End Catheter Placement Cordis 5Fr Pigtail LV Angiography Catheter (MP) Cordis 5Fr JL 4.0 Left Coronary Catheter (MP) Angiography Diagnostic Infinity 5Fr Left Coronary JL 5 catheter Angiography Diagnostic Infinity 5Fr Left Coronary JL 6 catheter Angiography Cordis 5Fr 3DRC Catheter Right Coronary (MP) Angiography Procedure Complications No complications Procedure Medications Medication Administration Route Dosage Oxygen NC 3 l/min Lidocaine 2% added to field 20 Heparin Flush Bag added to field 2 bags (1000units/500ml NS) 0.9% NaCl I.V. 100 ml/hr Versed I.V. 1 mg Fentanyl I.V. 50 mcg Hemodynamics Rest HGB: 10.7 (g/dl) Heart Rate: 84 (bpm) Snapshots Pre Cath Intra NCS Post Cath Vital Signs Time Heart Resp SPO2 NIBP (mmHg) Rhythm Pain Sedation Rate (ipm) (%) Status Level (bpm) 14:27:44 84 18 94 144/90(114) NSR 0 (11) 10(A) , No pain 14:32:08 72 27 98 144/86(127) NSR 0 (11) 10(A) , No pain 14:36:26 71 29 99 134/89(114) NSR 0 (11) 9(A) , No pain 14:40:49 81 22 94 133/75(112) NSR 0 (11) 9(A) , No pain 14:45:05 77 22 92 123/74(99) NSR 0 (11) 9(A) , No pain 14:49:23 80 22 92 121/73(87) NSR 0 (11) 9(A) , No pain 14:53:39 79 23 92 120/69(97) NSR 0 (11) 9(A) , No pain 14:57:57 86 23 91 122/71(97) NSR 0 (11) 10(A) , No pain Medications Time Medication Route Dose Verified Delivered Reason Notes Eff ectiveness by by 14:26:50 Oxygen NC 3 Raquel Raquel used for l/min Prabha Prabha contracts administrator RN 14:26:59 Lidocaine 2% added 20ml Raquel Raquel used for to vial Prabha Prabha procedure field RN RN 14:27:09 Heparin Flush added 2 Raquel Raquel for local Bag to bags Prabha Prabha anesthetic (1000units/500ml field RN RN NS) 14:27:19 0.9% NaCl I.V. 100 Raquel Raquel used for ml/hr Prabha Prabha contracts administrator RN 14:33:09 Versed I.V. 1 mg Raquel Raquel for Prabha Prabha sedation RN RN 14:33:15 Fentanyl I.V. 50 Raquel Raquel for mcg Prabha Prabha sedation RN stem roller Log Time Note 14:04:39 Informed consent obtained and on chart 14:04:45 Diagnostic Cath Status : Elective 14:05:07 Indication : Angina 14:05:12 Tayla Monroe RT(R) sent for patient. Start room use. 14:05:13 Time tracking: Regular hours 14:05:17 Plan of Care:Hemodynamics will remain stable., Cardiac rhythm will remain stable., Comfort level will be maintained., Respiratory function will remain adequate., Patient/ family verbilizes understanding of procedure., Procedure tolerated without complication., Recovers from procedure without complications.. 14:26:37 Vital chart was started 14:26:50 Oxygen 3 l/min NC was administered by Raquel Armando RN; used for procedure; 14::59 Lidocaine 2% 20ml vial added to field was administered by Raquel Armando RN; used for procedure; 14:27:09 Heparin Flush Bag (1000units/500ml NS) 2 bags added to field was administered by Raquel Armando RN; for local anesthetic; 14:27:19 0.9% NaCl 100 ml/hr I.V. was administered by Raquel Armando RN; used for procedure; 14:29:39 Patient received from Med/Surg to CCL 3 Alert and oriented. Tansferred to table in Supine position. 14:29:41 Warm blankets applied, and shruthi hugger turned on for patient comfort. 14::41 Correct patient and procedure confirmed by team. 14:29:42 ECG and BP/O2 sat monitors applied to patient. 14:29:43 Baseline sample Acquired. 14:29:55 Full Disclosure recording started 14:30:00 H&P Date Dictated: 11/29/2016 New H&P dictated by physician.. 14:30:02 Pre-procedure instructions explained to patient. 14:30:02 Pre-op teaching completed and patient verbalized understanding. 14:30:03 Family in waiting room. 14:30:04 Patient NPO since Midnight. 14:30:16 Patient allergic to Other allergysulfa 14:31:04 Is the patient allergic to Iodine/contrast media? No. 14:31:05 Was the patient premedicated? No 14:31:06 Is patient on blood thinner?No 14:31:07 Patient diabetic? No. 14:31:09 Previous problem with sedation/anesthesia? No ? 14:31:11 Snore? Yes 14:31:12 Sleep apnea? Yes 14:31:13 Deviated septum? No 14:31:14 Opens mouth fully? Yes 14:31:21 Sticks out tongue? Yes 14:31:23 Airway obstruction? No ? 14:31:25 Dentures? No ? 14:31:30 Pre procedure: right dorsailis pedis pulse 1+ Palpable, but thready & weak; easily obliterated 14:31:32 Pre procedure: left dorsailis pedis pulse 1+ Palpable, but thready & weak; easily obliterated 14:31:34 Patient pain scale 0/10 ?. 14:31:45 IV patent on arrival in left forearm with 0.9% NaCl at [facility]. 14:32:13 Lab Result : BUN 26 mg/dl 14:32:13 Lab Result : Creatinine 1.5 mg/dl 14:32:13 Lab Result : Hemoglobin 10.7 g/dl 14:32:17 Lab results completed and on chart. 14:32:22 Right groin area was prepped with chlora-prep and draped in sterile fashion 14:32:23 Alarms reviewed by R. N. 14:32:23 Sharps counted by scrub and verified by R.N. 14:32:25 Physician arrived 14:32:25 --------ALL STOP TIME OUT------ 14:32:25 Final Timeout: patient, procedure, and site verified with staff and physician. All members of the team are in agreement. 14:32:27 Right groin site verified by team. 14:32:31 Physical assessment completed. ASA score P 2 - A patient with mild systemic disease as per Liban Ramirez MD. 14:32:34 Sedation plan: IV Moderate Sedation Versed, Fentanyl 14:32:38 Use device set Femoral Dx 14:32:39 Acist Syringe opened to sterile field. 14:32:39 Bag Decanter opened to sterile field. 14:32:40 Medline Cath Pack opened to sterile field. 14:32:40 Terumo 5Fr Altona Sheath opened to sterile field. 14:32:41 St Royal 260cm J .035 wire opened to sterile field. 14:32:42 Acist Hand Control opened to sterile field. 14:32:42 Acist Manifold opened to sterile field. 14:32:43 Diagnostic Infinity 5Fr Multipack catheter opened to sterile field. 14:32:43 Tegaderm 4 x 4 opened to sterile field. 14:33:09 Versed 1 mg I.V. was administered by Raquel Armando RN; for sedation; 14:33:15 Fentanyl 50 mcg I.V. was administered by Raquel Armando RN; for sedation; 14:41:21 Zero performed for pressure channel P1 14:46:41 Procedure started. 14:46:52 Local anesthetic to right femoral artery with Lidocaine 2% by Liban Ramirez MD.INITIAL ACCESS ONLY 14:47:04 A 5 Fr sheath was inserted into the Right Femoral artery 14:48:25 A Cordis 5Fr Pigtail Catheter (MP) was advanced over the wire and used for LV Angiography. 14:49:01 Catheter removed. 14:49:06 A Cordis 5Fr JL 4.0 Catheter (MP) was advanced over the wire and used for Left Coronary Angiography. 14:50:13 Catheter removed. 14:50:16 A Diagnostic Infinity 5Fr JL 5 catheter was advanced over the wire and used for Left Coronary Angiography. 14:52:58 Catheter removed. 14:53:15 A Diagnostic Infinity 5Fr JL 6 catheter was advanced over the wire and used for Left Coronary Angiography. 14:55:26 Catheter removed. 14:55:32 A Cordis 5Fr 3DRC Catheter (MP) was advanced over the wire and used for Right Coronary Angiography. 14:56:49 Catheter removed. 14:57:12 Cordis 5Fr Exoseal opened to sterile field. 14:58:39 Sheath removed intact; hemostasis achieved with Exoseal to the Right Femoral artery. 14:58:41 Procedure ended.(Physican Out) 14:59:24 Fluoroscopy time 04.20 minutes. 14:59:29 Flurop Dose total: 443 14:59:29 Fluoroscopy dose: 443 mGy 14:59:43 Contrast amount:Isovue 300 83ml. 14:59:45 Sharps counted by scrub and verified by R.N. 14:59:47 Insertion/operative site no bleeding no hematoma. 14:59:49 Post-op/insertion site Right Femoral artery dressed using a 4 x 4 and Tegaderm. 14:59:52 Post right femoral artery:stable 14:59:54 Post Procedure Pulses reassessed and unchanged 15:00:01 Post procedure rhythm: unchanged. 15:00:03 Estimated blood loss: 5 ml 15:00:05 Post procedure instruction explained to patient.Patient verbalizes understanding. 15:00:05 Patient needs reinforcement of post procedure teaching. 15:00:16 Procedure type changed to Cath procedure, Diagnostic procedure, LHC, LHC w/Coronaries, Miscellaneous Procedures, Moderate Sedation up to 30 minutes 15:00:17 Procedure and supply charges have been captured, reviewed, submitted and are correct. 15:00:21 Procedure Complication : No complications 15:00:29 Vital chart was stopped 15:00:31 See physician's report for complete and final results. 15:00:35 Report given to [facility]. 15:01:31 Patient transfered to [facility] with Stretcher. 15:01:34 Procedure ended. 15:01:34 Full Disclosure recording stopped 15:01:41 End room use (Document Last) Device Usage Item Name Manufacture Quantity Catalog Hospital Part Current Minimal Lo t# / Number Charge Number Stock Stock Serial# Code Acist Acnew [facility] 1 81504 086976 991057 632936 20 Syringe Medical Systems Inc Bag Microtek 1 2002S 909988 38974 302015 5 Decanter Medical Inc. Medline Cardinal 1 [id number] 111261 33219 494334 5 Cath Pack WEPOWER Eco Terumo 5Fr Terumo 1 [id number] 472544 607549 223439 [address] St Royal 1 436587 605490 836568 533508 30 260cm J .035 wire Acist Hand Acist 1 58632 728161 471272 284983 5 Control Medical Systems Inc Acist Acist 1 41894 383085 768699 766613 5 Manifold Medical Systems Inc Diagnostic Cardinal 1 MI2043 807137 83055 634886 30 Infinity Health 5Fr Multipack catheter Tegaderm 4 3M 1 1626W 824090 067973 113768 5 x 4 Cordis 5Fr Cardinal 1 634137 5 Pigtail Health Catheter (MP) Cordis 5Fr Cardinal 1 065547 5 JL 4.0 Health Catheter (MP) Diagnostic Cardinal 1 [id number] 556264 775379 161364 5 Infinity Health 5Fr JL 5 catheter Diagnostic Cardinal 1 [id number] 612228 566326 481073 5 Infinity Health 5Fr JL 6 catheter Cordis 5Fr Cardinal 1 481521 5 3DRC Health Catheter (MP) Cordis 5Fr Cardinal 1 EX500 257227 504994 884615 10 [facility] WEPOWER Eco Signature Audit [place] Stage Time Signature Unsigned Intra-Procedure 11/29/2016 Tayla Monroe 3:04:12 PM RT(R) Signatures Monitor : aTyla Monroe RT Signature : Date : Time : [address] [place] [address]
[2016-11-26 12:03] LABS: BASOPHILS 0.8 % (0-2); EOSINOPHILS 3.1 % (0-7); HEMATOCRIT 33.1 % (42.0-54.0); HEMOGLOBIN 10.3 g/dL (13.5-17.5); IMMATURE GRANULOCYTES 0.3 % (0-5); LYMPHOCYTES 37.3 % (15-50); MCHC 31.1 g/dL (31.0-37.0); MCV 83.6 fL (80.0-100.0); MEAN PLATELET VOLUME 9.5 fL (7.4-10.4); MONOCYTES 6.6 % (2-11); NEUTROPHILS 51.9 % (40-80); RBC 3.96 10x6/uL (4.20-6.10); WBC 3.8 10x3/uL (4.8-10.8)
[2016-11-26 12:08] LABS: PLATELET COUNT 120 10x3/uL (130-400)
[2016-11-26 12:17] LABS: ALBUMIN 2.3 g/dL (3.4-5.0); ANION GAP 12.3 mmol/L (8-16); BILIRUBIN - TOTAL 0.91 mg/dL (0.2-1.3); CALCIUM 7.9 mg/dL (8.5-10.1); CARBON DIOXIDE 26.2 mmol/L (21.0-32.0); CREATININE - SERUM 1.7 mg/dL (0.6-1.3); POTASSIUM - SERUM 3.5 mmol/L (3.5-5.1); PROTEIN - SERUM 5.8 g/dL (6.4-8.2)
[2016-11-26 13:06] LABS: PRO BNP 3113 pg/mL (0-450); TROPONIN-I < 0.017 ng/mL (0.000-0.060)
[2016-11-26 13:08] LABS: APPEARANCE CLEAR (CLEAR); BACTERIA MODERATE /hpf (NONE SEEN); BILIRUBIN NEGATIVE (NEGATIVE); COLOR DK YELLOW (YELLOW); EPITHELIAL CELL CAST RARE /lpf (NONE SEEN); EPITHELIAL CELLS 0-5 /hpf (0-5); GLUCOSE NEGATIVE (NEGATIVE); GRANULAR CAST OCC /lpf (NONE SEEN); HYALINE CAST 0-5 /lpf (NONE SEEN); KETONE NEGATIVE (NEGATIVE); LEUKOCYTE ESTERASE NEGATIVE (NEGATIVE); MUCUS <1+ /lpf (NONE SEEN); NITRITE NEGATIVE (NEGATIVE); PROTEIN TRACE mg/dL (NEGATIVE); RED CELLS - URINE 0-5 /hpf (0-5); SPECIFIC GRAVITY 1.015 (1.005-1.020); WHITE CELLS - URINE OCC /hpf (0-5)
[2016-11-26 18:02] LABS: % SATURATION 9 % (15-55); IRON 27 ug/dl (35-150); TOTAL IRON BIND CAPACITY 291 ug/dl (260-445); UNSAT IRON BIND CAPACITY 264 ug/dl (150-375)
[2016-11-26 18:03] VITALS: BP 131/74; BMI 32.3
--- NOTE | 2016-11-26 18:14 | NUR ---
PT AOX4 RESP EVEN AND NONLABORED PT DENIES NEEDS AT THIS TIME IV TO LEFT FOREARM PATENT AND INTACT SRX2 BED AT LOWEST SETTING CALL LIGHT WITHIN REACH WILL CONTINUE TO MONITOR
[2016-11-26 18:17] LABS: INR 2.24 (0.85-1.17); PROTIME 24.8 SECONDS (11.6-15.0)
[2016-11-26 20:00] VITALS: BP 106/69
--- NOTE | 2016-11-27 01:07 | NUR ---
1930) REC'D. SITTING UPRIGHT IN BED WATCHING TV,BREATHING SLIGHTLY LABORED. 02 2L NC. O2 SATS 96% NO FURTHER RESP. DISTRESS OBSERVE.KNEE HIGH SUPPORT STOCKINGS ON LOWER EXT BILAT.WITH 1+ EDEMA OBSERVED PEDAL PULSES PRESENT
[2016-11-27 04:00] VITALS: BP 100/61
--- NOTE | 2016-11-27 04:54 | NUR ---
PATIENT RESTING IN BED WITH LAB AT BEDSIDE. NO VISIBLE SIGNS OF DISTRESS. BED IN LOWEST POSITION AND CALL LIGHT WITHIN REACH.
[2016-11-27 05:00] VITALS: BP 104/62
[2016-11-27 05:50] LABS: INR 1.84 (0.85-1.17); PROTIME 21.3 SECONDS (11.6-15.0)
[2016-11-27 06:07] LABS: ALBUMIN 2.4 g/dL (3.4-5.0); BILIRUBIN - TOTAL 0.9 mg/dL (0.2-1.3); CALCIUM 8.3 mg/dL (8.5-10.1); CARBON DIOXIDE 28.5 mmol/L (21.0-32.0); CREATININE - SERUM 1.4 mg/dL (0.6-1.3); POTASSIUM - SERUM 3.5 mmol/L (3.5-5.1); PROTEIN - SERUM 5.4 g/dL (6.4-8.2)
[2016-11-27 06:24] LABS: BASOPHILS 0.7 % (0-2); EOSINOPHILS 4.2 % (0-7); HEMATOCRIT 32.5 % (42.0-54.0); HEMOGLOBIN 10.1 g/dL (13.5-17.5); IMMATURE GRANULOCYTES 0.5 % (0-5); LYMPHOCYTES 33.2 % (15-50); MCH 26.1 pg (26.0-34.0); MCHC 31.1 g/dL (31.0-37.0); MEAN PLATELET VOLUME 9.5 fL (7.4-10.4); MONOCYTES 7.9 % (2-11); NEUTROPHILS 53.5 % (40-80); PLATELET COUNT 112 10x3/uL (130-400); RBC 3.87 10x6/uL (4.20-6.10); RDW 18.9 % (11.5-14.5)
--- NOTE | 2016-11-27 07:20 | NUR ---
PATIENT IN BED WITH IV INTACT. NO COMPLAINTS OR SIGNS OF DISTRESS. CALL LIGHT WITHIN REACH.
[2016-11-27 08:02] VITALS: BP 93/53
[2016-11-27 12:19] VITALS: BP 111/66
[2016-11-27 15:41] VITALS: Ht 185.4 cm; Wt 109.7 kg
[2016-11-27 15:46] VITALS: BP 117/72
[2016-11-27 20:00] VITALS: BP 108/55
[2016-11-28 05:12] LABS: BASOPHILS 0.8 % (0-2); EOSINOPHILS 3.7 % (0-7); HEMATOCRIT 31.7 % (42.0-54.0); HEMOGLOBIN 9.9 g/dL (13.5-17.5); IMMATURE GRANULOCYTES 0.3 % (0-5); LYMPHOCYTES 35.6 % (15-50); MCH 26.1 pg (26.0-34.0); MCHC 31.2 g/dL (31.0-37.0); MCV 83.4 fL (80.0-100.0); MEAN PLATELET VOLUME 9.4 fL (7.4-10.4); MONOCYTES 8.9 % (2-11); NEUTROPHILS 50.7 % (40-80); PLATELET COUNT 125 10x3/uL (130-400); WBC 3.8 10x3/uL (4.8-10.8)
[2016-11-28 05:21] LABS: INR 1.63 (0.85-1.17); PROTIME 19.2 SECONDS (11.6-15.0)
[2016-11-28 05:28] LABS: ALBUMIN 2.2 g/dL (3.4-5.0); BILIRUBIN - TOTAL 0.9 mg/dL (0.2-1.3); CALCIUM 8.5 mg/dL (8.5-10.1); CARBON DIOXIDE 30.4 mmol/L (21.0-32.0); CREATININE - SERUM 1.4 mg/dL (0.6-1.3); POTASSIUM - SERUM 3.4 mmol/L (3.5-5.1); PROTEIN - SERUM 5.5 g/dL (6.4-8.2)
--- NOTE | 2016-11-28 07:19 | NUR ---
PATIENT SITTING UP ON THE SIDE OF HIS BED. PATIENT IS AWAKE, ALERT, AND ORIENTED X4. DENIES ANY PAIN AT PRESENT TIME. ICE WATER GIVEN TO PATIENT PER PATIENT'S REQUEST. PATIENT DENIES ANY FURTHER NEEDS. CALL LIGHT IN PATIENT'S REACH. WILL MONITOR PATIENT.
[2016-11-28 08:20] LABS: FOLATE (FOLIC ACID) - SERUM 9.5 ng/mL (>3.0)
[2016-11-28 08:21] VITALS: BP 103/56
--- NOTE | 2016-11-28 11:19 | NUR ---
Patient Name: LILIYA TREJO Admission Status: ER Accout number: [id number] Admission Date: 11-27-2016 : 1930 Admission Diagnosis: Attending: TJ YAN Current LOS: 1 Anticipated DC Date: 12-02-2016 Planned Disposition: Home Primary Insurance: MEDICARE A & B Discharge Planning Comments: CM MET WITH PATIENT AND DAUGHTER (JAZMINE) REGARDING D/C NEEDS AND PLANS. PATIENT LIVES ALONE AND SOMEONE IN FAMILY WILL DRIVE HIM HOME AT DISCHARGE. THERE IS A RAMP TO ENTER HOME AND NO STAIRS INSIDE. PATIENT STATED HE IS INDEPENDENT WITH HIS CARE AND HAS A WALKER, CANE, SHOWER CHAIR, BS COMMODE, CPAP, AND NEBULIZER AT HOME. PATIENTS PCP IS DR. FRAUSTO AND HE USES [facility]. PATIENT IS INTERESTED IN REHAB AND WANTS TO SPEAK TO DAUGHTERS. CM WILL CONTINUE TO FOLLOW PATIENT WITH D/C NEEDS AND PLANS. PCP [facility]- [phone] JAZMINE (DAUGHTER) [phone] Manager Investigations: Carlene Lopes Is the patient Alert and Oriented? Yes 0 * How many steps to enter\exit or inside your home? RAMP 0 * PCP [facility] 0 * [facility] * Preadmission Environment Home Alone 0 * ADLs Independent 0 * Equipment Bedside Commode Cane CPAP Nebulizer Shower Chair Walker 0 * List name and contact numbers for known caregivers / representatives who currently or will assist patient after discharge: JAZMINE (DAUGHTER) [phone] 0 * Community resources currently utilized None 0 * Additional services required to return to the preadmission environment? Yes 0 * Can the patient safely return to the preadmission environment? Yes 0 * Has this patient been hospitalized within the prior 30 days at any hospital? No 0 Grand Total: 0
[2016-11-28 12:17] VITALS: BP 105/58
[2016-11-28 16:02] VITALS: BP 140/71
--- NOTE | 2016-11-28 16:26 | NUR ---
Rehab Note- Acute Rehab order received. The patient has a qualifing acute rehab diagnosis. Will follow at this time. Thank you for this referral! Sara Dailey RN Clinical Liaison, [facility] Re[facility]
--- NOTE | 2016-11-28 17:07 | NUR ---
PATIENT RESTING IN HIS BED. DAUGHTER AT PATIENT'S BEDSIDE. SCHEDULED LASIX 20 MG IV GIVEN TO PATIENT. DINNER TRAY SERVED TO PATIENT. CALL LIGHT IN PATIENT'S REACH. PATIENT DENIES NEEDS AT PRESENT TIME. WILL MONITOR PATIENT.
--- NOTE | 2016-11-28 19:00 | NUR ---
REPORT RECEIVED AND CARE OF PT ASSUMED. PT LYING IN HIGH SANDOVAL'S POSITION WATCHING TV. IV IN LEFT AC SALINE LOCKED. TELEMETRY IN PLACE AND READING CONTROLLED A-FIB W/ BBB AT THIS ASSESSMENT. WILL MONITOR CLOSELY FOR NEEDS.
[2016-11-28 20:00] VITALS: BP 112/71
--- NOTE | 2016-11-28 21:45 | NUR ---
HS MEDICATIONS GIVEN. FAMILY MEMBERS ARE AT BEDSIDE.
--- NOTE | 2016-11-28 23:55 | NUR ---
NPO STATUS STARTS AT MIDNIGHT. ALL CUPS REMOVED FROM SIDE TABLE. SIGNAGE ON DOOR.
[2016-11-29] VITALS (8 sets, daily range): BP systolic 113–132; BP diastolic 58–99
--- NOTE | 2016-11-29 04:46 | NUR ---
PT RESTING QUIETLY IN SUPINE POSITION WITH EYES CLOSED AND UNLABORED BREATHING. SIDE RAILS UP X2 FOR SAFETY.
[2016-11-29 05:36] LABS: BASOPHILS 0.9 % (0-2); EOSINOPHILS 5.6 % (0-7); HEMATOCRIT 34.6 % (42.0-54.0); HEMOGLOBIN 10.7 g/dL (13.5-17.5); IMMATURE GRANULOCYTES 0.2 % (0-5); INR 1.13 (0.85-1.17); LYMPHOCYTES 37.8 % (15-50); MCHC 30.9 g/dL (31.0-37.0); MEAN PLATELET VOLUME 9.3 fL (7.4-10.4); MONOCYTES 8.8 % (2-11); NEUTROPHILS 46.7 % (40-80); PLATELET COUNT 115 10x3/uL (130-400); PROTIME 14.4 SECONDS (11.6-15.0); RBC 4.12 10x6/uL (4.20-6.10); RDW 19.2 % (11.5-14.5); WBC 4.3 10x3/uL (4.8-10.8)
[2016-11-29 05:47] LABS: ALBUMIN 2.4 g/dL (3.4-5.0); BILIRUBIN - TOTAL 0.9 mg/dL (0.2-1.3); CALCIUM 8.8 mg/dL (8.5-10.1); CARBON DIOXIDE 30.1 mmol/L (21.0-32.0); CREATININE - SERUM 1.5 mg/dL (0.6-1.3); PROTEIN - SERUM 5.9 g/dL (6.4-8.2)
[2016-11-29 05:49] LABS: POTASSIUM - SERUM 4.1 mmol/L (3.5-5.1)
--- NOTE | 2016-11-29 07:30 | NUR ---
PT AOX4 RESP EVEN AND NONLABORED PT DENIES NEEDS AT THIS TIME IV TO LEFT AC PATENT AND INTACT AT THIS TIME SRX2 BED AT LOWEST SETTING CALL LIGHT WITHIN REACH WILL CONTINUE TO MONITOR
--- NOTE | 2016-11-29 10:31 | NUR ---
This patient meets criteria for IRF, but is going to the medical lab technologist today. Spoke to the CM Carlene Lau who says he is interested in coming to rehab prior to discharge home. He will be accepted to the inpatient rehab when physician feels he is medicall stable for discharge to rehab. Nalini Lancaster RN Clinical Liaison, Rehab
--- NOTE | 2016-11-29 13:11 | NUR ---
NUTRITION F/U CHART REVIEWED. PT CURRENTLY NPO FOR DATA PROCESSING OPERATOR. TX TO MED II. WILL PROVIDE DIET WHEN RESUMED, MONITOR PO INTAKE. RD FOLLOWING
--- NOTE | 2016-11-29 14:37 | NUR ---
SHIFT REPORT GIVEN FROM ALBERTO PRIMARY NURSE FROM [place] FLOOR. PT CURRENTLY IN CATH. WILL CONTINUE WITH ORDERS.
--- NOTE | 2016-11-29 15:15 | NUR ---
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 BP 132/65 VIA R.ARM HR 83 TELEMETRY CONTROLLED A.FIB PER GT Channel. RR NONLABORED WITH NC @2L IN PLACE AND PULSE OX OF 98% PT A&O AND HAS A DRSG TO HIS R.GROIN CDI NO S/S OF BLEEDING OR HEMATOMA NOTED. PERIPHERAL PULSES INTACT. PT IS TO REMAIN FLAT FOR 2 HOURS AND VERBALIZED UNDERSTANDING. FAMILY AT BEDSIDE. NO CURRENT NEEDS. WILL CPOC.
--- NOTE | 2016-11-29 16:16 | NUR ---
VSS AND STILL BEING RECORDED PER POST CATH PROTOCOL. KRISTA DRSG CDI NO S/S OF HEMATOMA OR BLEEDING NOTED. PERIPHERAL PULSES INTACT. PT NEEDING TO VOID SO I ASSISTED HIM WITH THE URINAL AND HE VOIDED 150ML OF CLEAR YELLOW URINE. PT DENIES ANY FURTHER NEEDS AT THIS TIME. CL IN REACH, BED IN LOWEST, SIDE RAILS X2 AND FAMILY AT BEDSIDE. WILL CPOC.
--- NOTE | 2016-11-29 16:54 | NUR ---
VSS AND STILL BEING RECORDED. PERIPHERAL PULSES INTACT. R.GROIN DRSG CDI NO S/S OF HEMATOMA OR BLEEDING NOTED. FAMILY AT BEDSIDE. WILL CPOC.
--- NOTE | 2016-11-29 16:59 | NUR ---
Patient Name: LILIYA TREJO Encounter No: [id number] : 1930 Primary Insurance: MEDICARE A & B Anticipated DC Date: 12-02-2016 Planned Disposition: INPATIENT REHAB External Planned Provider: [facility] DCP follow-up note: CM RECEIVED CALL FROM AYANA OF [facility] INPATIENT [facility], INPATIENT REHAB WILL ACCEPT PT WHEN MEDICALLY STABLE FOR DISCHARGE TO REHAB. CM SPOKE TO PT AND FAMILY IN ROOM, FAMILY REPORTS PT IS CONSIDERING INPATIENT REHAB, PT REPORTS HE MAY GO. NOTIFY [facility] FOR DISCHARGE TO REHAB. Remy Bolanos, CASE MANAGEMENT
--- NOTE | 2016-11-29 17:30 | NUR ---
2 HOUR LAY COMPLETED. ASSISTED PT IN SITTING UP. KRISTA BRASHERG REMAINS CDI WITH NO S/S OF HEMATOMA OR BLEEDING NOTED. PT READY TO EAT DINNER DENIES ANY CURRENT NEEDS. WILL CPOC.
--- NOTE | 2016-11-29 17:49 | NUR ---
EMPTIED URINAL OF 300MLS CLEAR YELLOW URINE.
--- NOTE | 2016-11-29 23:55 | NUR ---
INITIAL ROUNDS COMPELTED AT 1920 HRS. PT DENIED ANY DISCOMFORT. ASSESSMENT COMPLETED AT 2020 HRS. VSS. CAF PER CM HR 77. O2 3LNC. IV TO LAC SL. LUBGS DIMINISHED IN BASES BILAT. PT'S OWN SUPPORT HOSE ON. FEET WARM AND DRY TO TOUCH WITH GOOD CAP REFILL TO TOENAILS. LUNGS DIMINISHED IN BASES BILAT. PM MEDS GIVEN BUT IV TO LAC OCCLUDED. DC'S WITH CATHETER INTACT. NEW IN STARTED AT 215O HRS #22 TO UPPER LFA WITH ATTEMPT X1. PT TOLERATED ACTIVITY WELL. R GROIN CLEAN, DRY AND INTACT. R GROIN REASAESSED AT THIS TIME WITH NO CHANGE NOTED. PT CURRENTLY RESTING WITH EYES CLOSED. RESP EVEN AND REGULAR. SR UP X2, CALL LIGHT WITHIN REACH, HOME CPAP ON, FAMILY AT BEDSIDE AND BED ALARM ON.
[2016-11-30] VITALS: BP 106/52
--- NOTE | 2016-11-30 02:12 | NUR ---
PT RESTING WITH EYES CLOSED. RESP EVEN AND REGULAR. SR UP X2,CALL LIGHT WITHIN REACH.
[2016-11-30 04:00] VITALS: BP 114/65
--- NOTE | 2016-11-30 04:49 | NUR ---
PT AWAKE; DENIES ANY DISCOMFORT. NO CHANGES TO R GROIN NOTED. WILL CONTINUE TO MONITOR.
[2016-11-30 05:28] LABS: BASOPHILS 0.5 % (0-2); EOSINOPHILS 5.7 % (0-7); HEMOGLOBIN 10.4 g/dL (13.5-17.5); IMMATURE GRANULOCYTES 0.3 % (0-5); LYMPHOCYTES 30.1 % (15-50); MCHC 30.6 g/dL (31.0-37.0); MONOCYTES 7.8 % (2-11); NEUTROPHILS 55.6 % (40-80); PLATELET COUNT 114 10x3/uL (130-400); RDW 19.5 % (11.5-14.5); WBC 3.9 10x3/uL (4.8-10.8)
[2016-11-30 05:50] LABS: INR 1.15 (0.85-1.17); PROTIME 14.6 SECONDS (11.6-15.0)
[2016-11-30 06:02] LABS: ALBUMIN 2.3 g/dL (3.4-5.0); ANION GAP 7.1 mmol/L (8-16); BILIRUBIN - TOTAL 0.92 mg/dL (0.2-1.3); CALCIUM 8.2 mg/dL (8.5-10.1); CARBON DIOXIDE 28.9 mmol/L (21.0-32.0); CREATININE - SERUM 1.5 mg/dL (0.6-1.3); PROTEIN - SERUM 5.8 g/dL (6.4-8.2)
--- NOTE | 2016-11-30 06:23 | NUR ---
VSS THROUGHUT NGIHT. CAF PER CM. PT DENIED ANY DISCOMFORT. R GROIN CLEAN, DRY AND INTACT. NEEDS MET; WILL CONTINUE TO MONITOR.
--- NOTE | 2016-11-30 07:35 | NUR ---
PT SITTING UP IN BED WITH AT BEDSIDE DENIES NEEDS WILL CONT TO MONITOR
[2016-11-30 07:45] LABS: MAGNESIUM - SERUM 2.1 mg/dL (1.8-2.4); PHOSPHOROUS 3.1 mg/dL (2.5-4.9)
[2016-11-30 08:10] VITALS: BP 129/58
[2016-11-30 12:32] VITALS: BP 107/56
[2016-11-30 15:39] VITALS: BP 111/67
--- NOTE | 2016-11-30 20:03 | NUR ---
INITAL ROUNDS COMPLETED AT 1930 HRS. PT DENIED ANY DISCOMFORT. ASSESSMENT COMPLETED AT 1940 HRS. CAF PER CM HR 90. IV TO UPPER LFA SL. LUNGS DIMINISHED IN BASES BILAT. O2 3LNC. SORE NOTED TO ANTERIOR R ANKLE APPROX 0.5CM IN DIAMETER. DENEIS ANY DISCOMFORT. FAMILY AT BEDSIDE.
[2016-11-30 20:32] VITALS: BP 109/61
--- NOTE | 2016-11-30 23:12 | NUR ---
PM MEDS GIVEN. IV TO UPPER LFA INFILTRATED WHILE FLUSHING WITH NS. IV DC'S WITH CATHETER INTACT. NEW IV STARTED AT 2255 HRS. #22 TO INNER LAC AREA WITH ATTEMPT X2. PT TOLERATED ACTIVITY WELL. WILL CONTINUE TO MONITOR. ADIN AT BEDSIDE AND HOME CPAP IN USE.
--- NOTE | 2016-12-01 00:56 | NUR ---
PT RESTING WITH EYES CLOSED. RESP EVEN AND REGULAR. HOME CPAP IN USE. GRANDSON AT BEDSIDE. WILL CONTINUE TO MONITOR.
[2016-12-01 01:18] VITALS: BP 98/66
--- NOTE | 2016-12-01 02:21 | NUR ---
PT RESTING WITH EYES CLOSED. RESP EVEN AND REGULAR. HOME CPAP IN USE. CALL LIGHT WITHIN REACH AND GRANDSON AT BEDSIDE.
--- NOTE | 2016-12-01 04:24 | NUR ---
PT AWAKE; DENIES ANY DISCOMFORT. WILL CONTINUE TO MONITOR. GRANDSON AT BEDSIDE.
[2016-12-01 05:25] LABS: BASOPHILS 0.7 % (0-2); EOSINOPHILS 7.4 % (0-7); HEMATOCRIT 34.7 % (42.0-54.0); HEMOGLOBIN 10.8 g/dL (13.5-17.5); IMMATURE GRANULOCYTES 0.5 % (0-5); LYMPHOCYTES 35.9 % (15-50); MCH 26.5 pg (26.0-34.0); MCHC 31.1 g/dL (31.0-37.0); MEAN PLATELET VOLUME 10.4 fL (7.4-10.4); MONOCYTES 8.6 % (2-11); NEUTROPHILS 46.9 % (40-80); PLATELET COUNT 119 10x3/uL (130-400); RBC 4.08 10x6/uL (4.20-6.10); RDW 19.5 % (11.5-14.5); WBC 4.2 10x3/uL (4.8-10.8)
[2016-12-01 05:32] LABS: INR 1.06 (0.85-1.17); PROTIME 13.6 SECONDS (11.6-15.0)
[2016-12-01 05:42] LABS: ALBUMIN 2.3 g/dL (3.4-5.0); ANION GAP 7.7 mmol/L (8-16); BILIRUBIN - TOTAL 0.87 mg/dL (0.2-1.3); CALCIUM 8.5 mg/dL (8.5-10.1); CARBON DIOXIDE 29.3 mmol/L (21.0-32.0); CREATININE - SERUM 1.4 mg/dL (0.6-1.3); MAGNESIUM - SERUM 2.2 mg/dL (1.8-2.4); PHOSPHOROUS 3.1 mg/dL (2.5-4.9); PROTEIN - SERUM 5.9 g/dL (6.4-8.2)
[2016-12-01 05:55] VITALS: BP 94/51
--- NOTE | 2016-12-01 06:21 | NUR ---
VSS THROUGHOUT NIGHT. CAF PER CM. PT DENIED ANY DISCOMFORT. PT NPO FOR 1000 EGD WITH TIVA. NEEDS MET; WILL CONTINUE TO MONITOR.
[2016-12-01 08:05] VITALS: BP 121/69
--- NOTE | 2016-12-01 09:39 | NUR ---
PATIENT LEFT UNIT VIA BED FOR EGD AT THIS TIME. NO DISTRESS UPON LEAVING UNIT.
--- NOTE | 2016-12-01 10:29 | NUR ---
0945 IV LT ARM IS REDENED AND PUFFY, PT STATES DOES BURN WITH FLUIDS, IV SITE RESITED TO RIGHT AC WITH 20 MACHELLE JELCO.
--- NOTE | 2016-12-01 10:58 | NUR ---
RECEIVED PATIENT BACK FROM EGD. AWAKE, ALERT, TALKING. FAMILY AT BEDSIDE. POST OP NURSE REPORTS NO ACTIVE BLEED, SLIGHT GASTRITIS. BP 130/84. IV RESITED TO RIGHT AC VIA GI TEAM. NO DISTRESS.
--- NOTE | 2016-12-01 12:35 | NUR ---
RESTING IN BED WITH ATTENTION TOWARD TELEVISION. CALL LIGHT WITHIN REACH. NO DISTRESS.
[2016-12-01 15:09] VITALS: BP 114/68
--- NOTE | 2016-12-01 15:29 | NUR ---
SPOKE WITH JAMILA IN PHARMACY AND MADE HER AWARE THE AMPICILLIN FOR PATIENT IS NOT AVAILABLE IN PCU PYXIS.
--- NOTE | 2016-12-01 17:07 | NUR ---
AMPICILLIN STILL NOT AVAILABLE TO ADMINISTER FROM PHARMACY. MEDICATION IS NOT IN PYSIX, MED CART OR REFRIGERATOR! PHARMACY GONE AT 1700.
--- NOTE | 2016-12-01 19:32 | NUR ---
RESUMED CARE OF PT, UP IN CHAIR RESPIRATIONS EVEN AND UNLABORED ON 2.5LPM VIA NC. 79 CAF ON TELEMETRY. RIGHT AC SALINE LOCKED. FAMILY AT BEDSIDE, CALL LIGHT IN REACH. WILL CONTINUE TO MONITOR. SEE NURSE ASSESSMENT.
[2016-12-01 20:35] VITALS: BP 97/63
[2016-12-02 00:08] VITALS: BP 101/60
[2016-12-02 04:37] VITALS: BP 101/53
--- NOTE | 2016-12-02 07:36 | NUR ---
ASSESSMNET COMPLETED. SL TO RIGHT AC.TELEMERTY SHOWS UCAFIB AT 106. DENIES ANY NEEDS. ALERT AND ORIENTED.O 2 AT 2/LM. FAMILY AT BEDSIDE
[2016-12-02 08:00] VITALS: BP 111/68
--- NOTE | 2016-12-02 09:41 | NUR ---
RESTS WITH EYES CLOSED. FAMILY MEMBER AT BS. CALL LIGHT IN REACH. WILL CONT. PLAN OF CARE.
--- NOTE | 2016-12-02 11:12 | NUR ---
Patient Name: LILIYA TREJO Encounter No: [id number] : 1930 Primary Insurance: MEDICARE A & B Anticipated DC Date: 12-02-2016 Planned Disposition: Inpatient Rehab External Planned Provider: [facility] DCP follow-up note: CM SPOKE TO BERNICE OF [facility] INPAT[facility], INPATIENT REHAB WILL ACCEPT PT WHEN MEDICALLY STABLE FOR DISCHARGE TO REHAB. CM SPOKE TO PT AND FAMILY IN ROOM, PT AND DAUGHTER REPORTED AGREEMENT WITH DISCHARGE TO [facility]. IMPORTANT MESSAGE FROM MEDICARE PROVIDED AND DISCUSSED. NOTIFY [facility] INPATIENT [facility] FOR DISCHARGE TO REHAB. Remy Bolanos, CASE MANAGEMENT
[2016-12-02 12:00] VITALS: BP 100/64
[2016-12-02 15:28] LABS: INR 1.05 (0.85-1.17); PROTIME 13.6 SECONDS (11.6-15.0)
[2016-12-02 16:00] VITALS: BP 115/57
--- NOTE | 2016-12-02 18:27 | NUR ---
UP ON SIDE OF BED. DENIES ANY NEEDS. TELEMERTY SHOWS UCAF WITH OCC. PACED BEAT
[2016-12-02 19:00] VITALS: BP 117/67
[2016-12-03] VITALS: BP 106/69
--- NOTE | 2016-12-03 01:58 | NUR ---
RESTING WITH EYES CLOSED. RESPERATIONS EVEN, NO S/S DISTRESS NOTED.
[2016-12-03 04:32] VITALS: BP 99/60
--- NOTE | 2016-12-03 07:20 | NUR ---
RECEIVED REPORT. ASSUMED CARE OF PATIENT. CALL LIGHT WITHIN REACH. RESP EVEN AND UNLABORED. NO DISTRESS.
[2016-12-03 08:00] VITALS: BP 108/72
--- NOTE | 2016-12-03 10:00 | NUR ---
FAMILY AT BEDSIDE QUESTIONING WHEN PATIENT WILL GO TO REHAB. TIME IS UNKNOWN. AWAITING TO RECEIVE DISCHARGE ORDERS. CALL LIGHT WITHIN REACH. NO DISTRESS.
[2016-12-03] MEDS ORDERED: FERROUS SULFAT325 MG PO (13:02)
--- NOTE | 2016-12-03 14:55 | NUR ---
20 GAUGE REMOVED FROM RIGHT AC. CATHETER TIP INTACT. NO BLEEDING FROM SITE. 2X2 GAUZE APPLIED AND SECURED WITH TAPE. PATIENT IS BEING DISCHARGED TO REHAB. TOLERATED IV REMOVAL WELL.
[2016-12-03 15:51] LABS: INR 1.03 (0.85-1.17); PROTIME 13.4 SECONDS (11.6-15.0)
[2016-12-03 16:00] VITALS: BP 128/78
--- NOTE | 2016-12-03 16:20 | NUR ---
REPORT CALLED TO [facility]. PATIENT TRANSFERRING TO ROOM 1117.
--- NOTE | 2016-12-03 17:04 | NUR ---
1615 DISCHARGE INSTRUCTIONS PROVIDED TO PATIENT. PATIENT VERBALIZED ALL INSTRUCTIONS. 1630 PATIENT LEFT UNIT VIA WHEELCHAIR WITH ALL PERSONAL BELONGINGS. HEARING AIDES TO BILATERAL EARS AND CELL PHONE IN FRONT SHIRT POCKET. PATIENT BEING DISCHARGED TO INPATIENT REHAB UNIT, RM 1117. NO DISTRESS UPON LEAVING UNIT.
== END 2016-12-03 16:30 | DRG 286 ==
LOC: D.ER 11:25 → OBSVTIME 16:04 → D.MS 16:04 → D.M2 11-27 13:47
PROVIDERS: Emergency Medicine; Internal Medicine Gastroenterology; ADMIT Family Medicine
PROC: B2111ZZ Fluoroscopy of Multiple Coronary Arteries using Low Osmolar Contrast (ICD-10-PCS; 2016-11-29)
PROC: B2151ZZ Fluoroscopy of Left Heart using Low Osmolar Contrast (ICD-10-PCS; 2016-11-29)
PROC: 4A023N7 Measurement of Cardiac Sampling and Pressure, Left Heart, Percutaneous Approach (ICD-10-PCS; 2016-11-29)
PROC: 0DB68ZX Excision of Stomach, Via Natural or Artificial Opening Endoscopic, Diagnostic (ICD-10-PCS; principal; 2016-12-01 10:00)
DX: I13.0 Hypertensive heart and chronic kidney disease with heart failure and stage 1 through stage 4 chronic kidney disease, or unspecified chronic kidney disease (principal); I50.43 Acute on chronic combined systolic (congestive) and diastolic (congestive) heart failure; K29.01 Acute gastritis with bleeding; D61.818 Other pancytopenia; N18.3 Chronic kidney disease, stage 3 (moderate); Z86.73 Personal history of transient ischemic attack (TIA), and cerebral infarction without residual deficits; I48.2 Chronic atrial fibrillation; Z79.01 Long term (current) use of anticoagulants; Z95.0 Presence of cardiac pacemaker; I08.1 Rheumatic disorders of both mitral and tricuspid valves; I25.10 Atherosclerotic heart disease of native coronary artery without angina pectoris; E03.9 Hypothyroidism, unspecified; R68.81 Early satiety; K29.80 Duodenitis without bleeding; K20.9 Esophagitis, unspecified; Z95.5 Presence of coronary angioplasty implant and graft

== ENCOUNTER 2016-12-03 17:21 | Inpatient (IN) | payer MEDICARE, OTHER ==
[~2016-12-03 17:21] MED LIST changes: +FERROUS SULFAT325 MG PO
[2016-12-03 19:26] VITALS: BP 120/68
--- NOTE | 2016-12-03 19:30 | NUR ---
PATIENT IN BED, AWAKE. FAMILY MEMBERS VISITING.
--- NOTE | 2016-12-03 21:20 | NUR ---
RESTING IN BED, EYES CLOSED. CPAP MASK IN PLACE WITH CPAP OPERATING.
--- NOTE | 2016-12-03 22:30 | NUR ---
ADMISSION ASSESSMENT AND HISTORY COMPLETE. PATIENT SIGNED ADMISSION DOCUMENTS. ASSISTED HIM TO DON CPAP MASK AGAIN AND RESUMED CPAP THERAPY.
--- NOTE | 2016-12-04 00:10 | NUR ---
IN BED, AWAKE. TURNING TO RIGHT SIDE. EMPTIED 325ML FROM BEDSIDE URINAL. NO C/O AT THIS TIME.
--- NOTE | 2016-12-04 04:40 | NUR ---
RESTING IN BED, EYES CLOSED. CONTINUES ON CPAP.
--- NOTE | 2016-12-04 06:15 | NUR ---
RESTING IN BED, EYES CLOSED.
[2016-12-04 06:34] LABS: BASOPHILS 0.8 % (0-2); HEMATOCRIT 35.3 % (42.0-54.0); IMMATURE GRANULOCYTES 0.5 % (0-5); LYMPHOCYTES 35.3 % (15-50); MCH 26.7 pg (26.0-34.0); MCHC 31.2 g/dL (31.0-37.0); MCV 85.7 fL (80.0-100.0); MONOCYTES 10.4 % (2-11); PLATELET COUNT 128 10x3/uL (130-400); RBC 4.12 10x6/uL (4.20-6.10); RDW 20.6 % (11.5-14.5); WBC 3.7 10x3/uL (4.8-10.8)
[2016-12-04 06:57] LABS: INR 1.12 (0.85-1.17); PROTIME 14.3 SECONDS (11.6-15.0)
[2016-12-04 06:59] LABS: ANION GAP 10.5 mmol/L (8-16); CALCIUM 8.2 mg/dL (8.5-10.1); CARBON DIOXIDE 29.6 mmol/L (21.0-32.0); CREATININE - SERUM 1.5 mg/dL (0.6-1.3); POTASSIUM - SERUM 4.1 mmol/L (3.5-5.1)
--- NOTE | 2016-12-04 08:00 | NUR ---
PATIENT ALERT/ORIENT X4. BREE ALARM ON WHILE IN BED. CALL LIGHT WITHIN REACH. USING CALL LIGHT FOR NEEDS. VOICES NO NEEDS AT THIS TIME.
--- NOTE | 2016-12-04 08:00 | NUR ---
BREAKFAST TRAY GIVEN.DENIES NEEDS.CL IN REACH.
[2016-12-04 08:12] VITALS: BP 92/57
--- NOTE | 2016-12-04 10:00 | NUR ---
OCCUPATIONAL THERIPIST IN PATIENTS ROOM. HELPING PATIENT WITH A SHOWER.
[2016-12-04 13:49] VITALS: BMI 31.4
--- NOTE | 2016-12-04 14:26 | NUR ---
CARE TEAM MEETING: PATIENT NEW TO UNIT AND WILL RA AT NEXT MEETING. WILL CONTINUE TO FOLLOW WITH PATIENT AND ASSIST WITH NEEDS.
--- NOTE | 2016-12-04 14:28 | NUR ---
CARE TEAM MEETING: PATIENT NEW TO UNIT AND WILL BE RA AT NEXT MEETING. WILL CONTINUE TO FOLLOW WITH PATIENT AND WILL ASSIST WITH DISCHARGE NEEDS.
--- NOTE | 2016-12-04 14:42 | NUR ---
PATIENT IN REHAB ROOM. WORKING WITH PHYSICAL THERAPIST. DENIES ANY PAIN/DISC AT THIS TIME.
--- NOTE | 2016-12-04 15:04 | NUR ---
PRN MIRALAX GIVEN PER PATIENT REQUEST.
--- NOTE | 2016-12-04 18:33 | NUR ---
BREE ALARM ON BED. PATIENT USING CALL LIGHT FOR NEEDS
--- NOTE | 2016-12-04 19:20 | NUR ---
PATIENT IN BED, AWAKE. PROVIDED HIM WITH A 2ND URINAL HE FEELS HE NEEDS IT DUE TO ONGOING DIURESIS WITH URINARY URGENCY.
[2016-12-04 20:00] VITALS: BP 102/62
--- NOTE | 2016-12-04 21:28 | NUR ---
PT IS RESTING QUIETLY IN BED WITH EYES CLOSED. CPAP ON.
--- NOTE | 2016-12-05 01:07 | NUR ---
RESTING IN BED WITH EYES CLOSED.
--- NOTE | 2016-12-05 04:11 | NUR ---
RESTING IN BED WITH EYES CLOSED. CPAP ON.
[2016-12-05 06:07] LABS: INR 1.15 (0.85-1.17); PROTIME 14.5 SECONDS (11.6-15.0)
--- NOTE | 2016-12-05 06:34 | NUR ---
PT INC. OF A LARGE AMOUNT OF URINE. KVNG CARE AND PAD CHANGE DONE. NO FURTHER NEEDS VOICED.
--- NOTE | 2016-12-05 07:37 | NUR ---
SITTING UP IN BED WATCHING TV. OFFERS NO COMPLAINTS. NO S/SX OF DISTRESS. CALL LIGHT WITHIN REACH, BED ALARM ON AND BED IN LOWEST POSITION. WILL CONTINUE TO MONITOR
--- NOTE | 2016-12-05 07:55 | NUR ---
UP OOB SITTING IN WC EATING BREAKFAST.CL IN REACH.
[2016-12-05 10:08] VITALS: BP 129/73
--- NOTE | 2016-12-05 11:11 | NUR ---
SITTING UP IN WHEELCHAIR VISITING WITH ROOMMATE. OFFERS NO COMPLAINTS. NO S.SX OF DISTRESS. CALL LIGHT WITHIN REACH, CHAIR ALARM ON. WILL CONTINUE TO MONITOR
--- NOTE | 2016-12-05 15:38 | NUR ---
IN THERAPY GYM WITH PHYSICAL THERAPY. DENIES NEEDS. WILL CONTINUE TO MONITOR
[2016-12-05 19:30] VITALS: BP 113/69
--- NOTE | 2016-12-05 19:45 | NUR ---
PT RESTING IN BED WITH EYES OPEN. ALERT AND ORIENTED X 3. DENIES ACUTE PAIN OR DISCOMFORT AT THIS TIME. VSS. SR'S ARE UP X 2 IN BED. CALL LIGHT AND BEDSIDE TABLE ARE WITHIN EASY REACH. BREE ALARM IS ON.
--- NOTE | 2016-12-05 22:30 | NUR ---
PT INC OF A LARGE AMOUNT OF URINE. KVNG CARE AND BED LINENS/CLOTHING CHANGED.
--- NOTE | 2016-12-06 00:05 | NUR ---
RESTING QUIETLY, EYES CLOSED.
--- NOTE | 2016-12-06 00:37 | NUR ---
RESTING IN BED WITH EYES CLOSED.
--- NOTE | 2016-12-06 04:15 | NUR ---
PT NOTED TO BE INC. OF A LARGE AMOUNT OF URINE. BED PAD AND BRIEF CHANGED. KVNG CARE DONE.
[2016-12-06 06:50] LABS: BASOPHILS 0.7 % (0-2); EOSINOPHILS 2.2 % (0-7); HEMATOCRIT 34.7 % (42.0-54.0); HEMOGLOBIN 10.8 g/dL (13.5-17.5); IMMATURE GRANULOCYTES 0.2 % (0-5); LYMPHOCYTES 31.6 % (15-50); MCH 26.6 pg (26.0-34.0); MCHC 31.1 g/dL (31.0-37.0); MCV 85.5 fL (80.0-100.0); MEAN PLATELET VOLUME 9.1 fL (7.4-10.4); MONOCYTES 11.6 % (2-11); NEUTROPHILS 53.7 % (40-80); PLATELET COUNT 117 10x3/uL (130-400); RBC 4.06 10x6/uL (4.20-6.10); RDW 20.8 % (11.5-14.5); WBC 4.5 10x3/uL (4.8-10.8)
[2016-12-06 07:00] LABS: INR 1.24 (0.85-1.17); PROTIME 15.5 SECONDS (11.6-15.0)
[2016-12-06 07:07] LABS: ANION GAP 9.6 mmol/L (8-16); CALCIUM 8.2 mg/dL (8.5-10.1); CARBON DIOXIDE 30.7 mmol/L (21.0-32.0); CREATININE - SERUM 1.7 mg/dL (0.6-1.3); POTASSIUM - SERUM 4.3 mmol/L (3.5-5.1)
--- NOTE | 2016-12-06 08:19 | NUR ---
EATING BREAKFAST IN ROOM. CALL LIGHT IN REACH
[2016-12-06 08:48] VITALS: BP 117/72
--- NOTE | 2016-12-06 13:32 | NUR ---
WORKING WITH [employer] IN W/C IN [place].
--- NOTE | 2016-12-06 19:20 | NUR ---
FAMILY MEMBERS TALK TO PT IN ROOM.
[2016-12-07 01:22] VITALS: BP 116/60
--- NOTE | 2016-12-07 03:42 | NUR ---
REST IN BED, EYE CLOSE, CALL LIGHT IN REACH.
[2016-12-07 06:13] LABS: INR 1.09 (0.85-1.17); PROTIME 13.9 SECONDS (11.6-15.0)
--- NOTE | 2016-12-07 06:26 | NUR ---
RESTING IN BED WITH EYES CLOSED. NO S/S OF DISTRESS OBSERVED. O2@ 2LITER PER N/C AT THIS TIME. CALL LIGHT IN REACH.
--- NOTE | 2016-12-07 07:18 | NUR ---
RESTING QUIETLY IN BED. CALL LIGHT IN REACH. BED IN LOW POSITION. BED ALARM IN PLACE AND IN USE.
--- NOTE | 2016-12-07 12:30 | NUR ---
SITTING UP IN W/C IN ROOM EATING LUNCH. USES URINAL TO VOID OFTEN. SCD OFF AT PRESENT.
--- NOTE | 2016-12-07 17:01 | NUR ---
RESTING QUIETLY IN BED, LAYING ON RIGHT SIDE. OXYGEN IN PLACE. USES URINAL IN BED.
[2016-12-07 18:41] VITALS: BP 102/59
--- NOTE | 2016-12-07 20:20 | NUR ---
EMPTY URINAL 200ML.
[2016-12-07 21:58] VITALS: BP 105/61
--- NOTE | 2016-12-08 01:00 | NUR ---
EMPTY 200ML URINE FROM URINAL.
--- NOTE | 2016-12-08 02:37 | NUR ---
RESTING IN BED WITH EYES CLOSED AT THIS TIME. CPAP IN PLACE AND FUNCTIONING PROPERLY. RESP EVEN AND UNLABORED. PITTING EDEMA TO KULDEEP LOWER EXTREMITIES. CALL LIGHT AND OVERBED TABLE IN REACH.
[2016-12-08 07:24] LABS: INR 1.49 (0.85-1.17); PROTIME 17.9 SECONDS (11.6-15.0)
[2016-12-08 08:00] VITALS: BP 98/48
--- NOTE | 2016-12-08 09:35 | NUR ---
PATIENT ALERT/ORIENT X4. SITTING UP ON THE SIDE OF THE BED TO EAT BREAKFAST. CALL LIGHT WITHIN REACH. VOICES NO NEEDS AT THIS TIME.
--- NOTE | 2016-12-08 11:09 | NUR ---
PATIENT USING URINAL AT BEDSIDE. NURSE EMPTIES URINAL FOR PATIENT
--- NOTE | 2016-12-08 13:22 | NUR ---
FAMILY IN ROOM WITH PATIENT. BREE ALARM ON BED. WENT OFF WHEN PATIENT SAT UP AT THE BEDSIDE TO TALK WITH FAMILY.
--- NOTE | 2016-12-08 19:30 | NUR ---
PT IS RESTING IN BED WITH EYES CLOSED. AWOKE EASILY TO VERBAL STIMULI. BED PAD NOTED TO BE WET. KVNG CARE AND PAD CHANGE DONE. NO FURTHER NEEDS VOICED.
[2016-12-08 20:00] VITALS: BP 123/75
--- NOTE | 2016-12-08 22:26 | NUR ---
RESTING QUIETLY IN BED WITH EYES CLOSED. RESPS ARE EVEN AND UNLABORED. NO ACUTE DISTRESS NOTED.
--- NOTE | 2016-12-09 01:34 | NUR ---
RESTING QUIETLY IN BED WITH EYES CLOSED. USING URINAL PRN.
--- NOTE | 2016-12-09 02:25 | NUR ---
RESTING IN BED WITH EYES CLOSED. NO S/S OFDISTRESS OBSERVED. CPAP IN PLACE AND FUNCTIONING PROPERLY. HOB NOT ELEVATED PER RESIDENT PREFERENCE. LEONIDES HOSE ON. CALL LIGHT AND OVERBED TABLE IN REACH.
[2016-12-09 05:37] LABS: BASOPHILS 0.8 % (0-2); EOSINOPHILS 3.6 % (0-7); HEMATOCRIT 34.1 % (42.0-54.0); HEMOGLOBIN 10.9 g/dL (13.5-17.5); IMMATURE GRANULOCYTES 0.3 % (0-5); LYMPHOCYTES 27.9 % (15-50); MCH 27.4 pg (26.0-34.0); MCV 85.7 fL (80.0-100.0); MEAN PLATELET VOLUME 10.2 fL (7.4-10.4); MONOCYTES 12.8 % (2-11); NEUTROPHILS 54.6 % (40-80); PLATELET COUNT 103 10x3/uL (130-400); RBC 3.98 10x6/uL (4.20-6.10); RDW 21.1 % (11.5-14.5); WBC 3.8 10x3/uL (4.8-10.8)
[2016-12-09 05:46] LABS: ANION GAP 11.2 mmol/L (8-16); CALCIUM 7.8 mg/dL (8.5-10.1); CARBON DIOXIDE 28.7 mmol/L (21.0-32.0); CREATININE - SERUM 1.5 mg/dL (0.6-1.3); INR 1.73 (0.85-1.17); POTASSIUM - SERUM 3.9 mmol/L (3.5-5.1); PROTIME 20.2 SECONDS (11.6-15.0)
--- NOTE | 2016-12-09 06:17 | NUR ---
PT UP AND SHOWERED WITH MOD ASSIST. DRESSED AND READY FOR THERAPY.
--- NOTE | 2016-12-09 08:00 | NUR ---
SHIFT ASSMT COMPLETED,UP TO SIDE OF BED.MEAL SET-UP GIVEN.CL IN REACH.
[2016-12-09 08:31] VITALS: BP 96/70
--- NOTE | 2016-12-09 12:00 | NUR ---
EATING LUNCH.DENIES NEEDS.PLAN TO DC HOME [place].
--- NOTE | 2016-12-09 14:54 | NUR ---
PATIENT DISCHARGING HOME 12/10/16 WITH [facility] SUPPORT. [facility] WILL FOLLOW WITH PATILILIAN AT HOME. NO NEW DME NEEDED AT THIS TIME. DR. FRAUSTO 12/16/16 @ 10:00, DR. MEJIA/JERMAINE 12/30/16 @ 10:00. PATIENT CHOICE FORM FOR HOME HEALTH AND [facility] FORM SIGNED, EXPLAINED AND FILED IN CHART. WILL CONTINUE TO FOLLOW WITH PATIENT
--- NOTE | 2016-12-09 19:41 | NUR ---
PT. IN BED WITH HOB UP FOR COMFORT AND IS WATCHING TV. CALL LIGHT WITHIN REACH.
--- NOTE | 2016-12-09 21:41 | NUR ---
PT IS RESTING IN BED WITH EYES OPEN. ALERT AND ORIENTED X 3. DENIES ACUTE DISCOMFORT AT THIS TIME. NOTED TO BE INC. OF A LARGE AMOUNT OF URINE. KVNG CARE AND PAD CHANGE DONE. NO NEEDS VOICED. SR'S ARE UP X 3. CALL LIGHT AND BEDSIDE TABLE ARE WITHIN EASY REACH.
--- NOTE | 2016-12-09 21:42 | NUR ---
PT IS RESTING IN BED WATCHING TV. NO NEEDS VOICED.
[2016-12-09 22:32] VITALS: BP 105/60
--- NOTE | 2016-12-09 23:48 | NUR ---
RESTING IN BED WITH EYES CLOSED.
--- NOTE | 2016-12-10 03:48 | NUR ---
RESTING QUIETLY IN BED WITH EYES CLOSED.
[2016-12-10 05:59] LABS: INR 2.04 (0.85-1.17)
--- NOTE | 2016-12-10 08:00 | NUR ---
SHIFT ASSMT COMPLETED.PLAN FOR DC HOME TODAY.
--- NOTE | 2016-12-10 09:35 | RHP ---
PATIENT: LILIYA TREJO MEDICAL RECORD: [id number] ACCOUNT: [id number] LOCATION:[facility]1117 : 30 ADMISSION DATE: 12/03/16 REHABILITATION HISTORY AND PHYSICAL EXAMINATION POST ADMISSION PHYSICIAN EXAMINATION Post-admission Physical Examination and History and Physical DATE OF ADMISSION: 12/03/2016 ADMITTING DIAGNOSES: [id number] congestive heart failure. HISTORY OF PRESENT ILLNESS: The patient is an 86-year-old gentleman who is admitted to the rehab on 12/03/2016 for acute exacerbation of CHF. The patient was admitted to the hospital on 11/27/2016. He is well known to Dr. Ramirez and follows him for Effie dysfunction, status post pacemaker placement, cardiomyopathy with an ejection fraction of 40% and he had a stent placed on 05/24/2016. He has also got chronic AFib. He is on Coumadin for this. Valvular heart disease with moderate mitral regurg and tricuspid regurgitation. 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 He is most recently was treated as an outpatient for pneumonia 3 weeks ago. He continues to have dyspnea on exertion, fatigue, back pain, right thumb numbness intermediately. He was admitted for further evaluation. He did not appear overly volume overload at this time. Cardiology felt his symptomatology was an anginal variant and therefore he is taken to the quality control lab tech on 11/29/2016. His left heart catheterization was negative for acute findings. GI was consulted for positive stool guaiac. On 12/01/2016, he went to the GI lab for an EGD, which showed mild distal esophagitis, erosive esophagitis, and mild duodenitis. Previously, he lived alone and he was independent with ADLs and mobility. Currently, he is moderate to max assist for ADLs and mobility. He plans to return home after he discharges. COMORBIDITIES: Include CHF, left pleural effusion, fatigue, weakness, iron deficiency anemia, pancytopenia, coronary artery disease, hypertension, hypothyroidism, chronic AFib, obstructive sleep apnea, anemia of chronic disease, hypothyroidism, chronic anticoagulation, severe aortic stenosis, chronic kidney disease, and bilateral popliteal aortic aneurysm. PAST MEDICAL HISTORY: Significant for CVA, thyroid problems, CHF, hypertension, and coronary artery disease. PAST SURGICAL HISTORY: Includes knee surgery, hernia surgery, aortic aneurysm with stent repair in the past, right knee replacement, and aortic valve replacement. ALLERGIES: SULFA. CURRENT MEDICATIONS: Include vitamin D 5000 units weekly. He is on Coumadin 5 mg daily, potassium 20 mEq daily, levothyroxine 100 mcg daily, aspirin chewable 81 mg daily, ascorbic acid 500 mg daily, Zyloprim 300 mg daily, furosemide 40 mg b.i.d., Flomax 0.4 mg q.h.s., Requip 0.5 mg q.h.s., ferrous sulfate 325 mg daily, Cordarone 200 mg b.i.d., and polyethylene glycol 17 grams in 8 ounces of water daily. HABITS: No current alcohol or tobacco use. HISTORY AND PHYSICAL [id number] LILIYA TREJO FAMILY HISTORY: Noncontributory. SOCIAL HISTORY: The patient once again wants to return home after his stay. REVIEW OF SYSTEMS: GENERAL: Does complain of weakness and fatigue. HEENT: Denies cold, cough, or congestion. CARDIOVASCULAR: Denies any chest pain at this time. LUNGS: Does complain of some shortness of breath with activity. PHYSICAL EXAMINATION: VITAL SIGNS: Stable. He is afebrile. GENERAL: Elderly gentleman, in no acute distress, alert upon exam. HEENT: Normocephalic and atraumatic. Mucosa moist. NECK: Supple. No adenopathy. LUNGS: Clear in upper cabrera. HEART: Regular rate and rhythm. ABDOMEN: Benign. EXTREMITIES: Does have some distal edema. NEUROLOGIC: Seems intact. LABORATORY DATA: His white count 3.7, H&H 11 and 35, and platelet count is 128. INR is 1.12. Sodium 137, potassium 4.1, BUN and creatinine of 22 and 1.5 and blood sugar is noted to be 98. ASSESSMENT: This is an 86-year-old gentleman admitted to the rehab with a working diagnosis of [id number] congestive heart failure with debility associated with this. The patient has potential to make improvement. We instituted the following multidisciplinary therapies including to, but not limited to physical, occupational, respiratory, speech, nutritional services, prosthetics, and orthotics. Given his complex condition and risk for more complications, rehabilitation services cannot be provided at a low level of care such as a group home facility. PLAN: 1. Assess rehab for intensive inpatient therapy to include the following disciplines: A. Physical therapy to improve gait, all transfer skills and bed mobility to a modified independent level. B. Occupational therapy to improve activities of daily living to a modified independent level. C. Case management to assist with discharge planning and placement options. D. Nutrition to assist in nutritional needs. E. Rehabilitation nursing to assist in monitoring the patient's underlying medical conditions and to assist with any type of bowel or bladder management. 2. The patient's current medications and medical care will be continued. 3. The patient will be placed on standard fall precautions. 4. We will manage his INR and Coumadin closely during his stay. 5. We will discuss this patient during care team staff meeting this week. TRANSINT:[id number] Voice Confirmation ID: [id number] DOCUMENT ID: [id number] YAZMIN notes whether there has been none or any medical/functional HISTORY AND PHYSICAL [id number] LILIYA TREJO change since admission: - No change since prescreen. YAZMIN attests patient continues to be appropriate for IRF: - Continues to be appropriate. ALEX TAYLOR MD at 0935 CC: [id number] DICTATION DATE: 12/04/16 0845 REGIONAL DRIVER: 12/04/16 1102 ADM IN [place] [id number] [place] [id number]
[2016-12-10 09:52] VITALS: BP 101/64
--- NOTE | 2016-12-10 12:00 | NUR ---
EATING LUNCH.DAUGHTER AT BEDSIDE.
--- NOTE | 2016-12-10 12:40 | NUR ---
REVIEWED APPTS;HOME HEALTH TO FOLLOW AND MEDS TO CONTINUE.IRON MEDICATION CALLED TO PTS PHARMACY.DAUGHTER STATES UNDERSTANDING OF HOME CARE.DC'D IN STABLE CONDITION.
== END 2016-12-10 12:40 | disposition home health service (06) | DRG 291 ==
LOC: D.REHAB 17:21
PROVIDERS: ADMIT Emergency Medicine
DX: I13.0 Hypertensive heart and chronic kidney disease with heart failure and stage 1 through stage 4 chronic kidney disease, or unspecified chronic kidney disease (principal); I50.43 Acute on chronic combined systolic (congestive) and diastolic (congestive) heart failure; J90 Pleural effusion, not elsewhere classified; D61.818 Other pancytopenia; R53.83 Other fatigue; R53.1 Weakness; D50.9 Iron deficiency anemia, unspecified; I25.10 Atherosclerotic heart disease of native coronary artery without angina pectoris; I42.9 Cardiomyopathy, unspecified; N18.3 Chronic kidney disease, stage 3 (moderate); E03.9 Hypothyroidism, unspecified; I48.91 Unspecified atrial fibrillation; G47.33 Obstructive sleep apnea (adult) (pediatric); Z79.01 Long term (current) use of anticoagulants; I71.9 Aortic aneurysm of unspecified site, without rupture; Z95.0 Presence of cardiac pacemaker; R06.00 Dyspnea, unspecified